=== PATIENT | female | born 2005 | race Caucasian/White ===

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

== ENCOUNTER 2025-01-11 12:21 | Outpatient (CLI) | payer BC, SELFPAY ==
--- NOTE | ~2025-01-11 | XR_ITS ---
HISTORY: Lt sided lbp x 4 days w/o injury COMPARISON: None. TECHNIQUE: 2 view lumbar spine. FINDINGS: Lumbar vertebral bodies are normally aligned. There are 5 non-rib bearing lumbar vertebral bodies. Disc spaces and vertebral body heights are well maintained. There are no acute fractures. Paraspinal soft tissues are unremarkable IMPRESSION: No acute fractures or significant degenerative disease Reviewed, dictated and finalized at location A.
== END 2025-01-11 12:22 | disposition home or self-care (01) ==
PROVIDERS: Visit Provider Nurse Practitioner
DX: M54.50 Low back pain, unspecified (principal)
CPT/HCPCS: 72100

== ENCOUNTER 2025-01-14 23:33 | Emergency (ER) | payer BC, SELFPAY ==
--- NOTE | ~2025-01-14 | CT_ITS ---
Noncontrast CT scan of the lumbar spine CLINICAL HISTORY: Pain TECHNIQUE: Axial noncontrast imaging of the lumbar spine was performed. Sagittal and coronal reformat keiko images were constructed. Dose reduction technique was used on this scan by utilizing automated ex posure control and iterative reconstruction technique. The dose-length product (DLP) was 1409.26 mGy- cm. FINDINGS: There is no acute fracture or subluxation of the lumbar spine. Vertebral bodies maintain no rmal height and alignment. Intervertebral disc spaces are well preserved. At L1-L2 and L2-L3, there is no disc bulge or herniation. No spinal canal stenosis or neural foramina l narrowing at these levels. L3-L4, there is probable minimal disc bulge. No definite canal stenosis or neural foraminal narrowing . At L4-L5, there is no disc bulge or herniation. No spinal canal stenosis or neural foraminal narrowin g. L5-S1, there is no disc bulge or herniation. No spinal canal stenosis or neural foraminal narrowing. Paravertebral soft tissues are unremarkable. Impression: Probable mild degenerative spondylosis at L3-L4, as above. Reviewed, dictated and finalized at location M. Impression: Probable mild degenerative spondylosis at L3-L4, as above.
--- OUTSIDE RECORDS SUMMARY | 2025-01-14 23:35 | XMS_ITS | Patient Health Record ---
Author Organization [facility] Address [address] [address] Care Team Providers Care Rural Route Mail Carrier Name Role Phone Kellie Gibson Unavailable [phone] Allergies Allergen (clinical drug ingredient) Drug/Non Drug Allergy documented on EMR Reaction Allergy Type Onset Date Status Egg Derived (uncoded) True allergy_Rash Allergy 09/24/2021 Active Lactase True allergy_intolera nce- hives Drug Allergy 09/24/2021 Active Whey Protein True allergy_Nausea and vomiting Drug Allergy 09/24/2021 Active Peanut-containing Drug Products True allergy_unknown Drug Allergy 09/24/2021 Active Reason For Referral No Information Medications Medication SIG (Take, Route, Frequency, Duration) Notes Start Date End Date Status EPINEPHrine 0.3 MG/0.3ML Injection daily for 0 take 0.3 Milliliter(s) by Subcutaneous route daily as needed 09/24/2021 Active Naproxen Sodium 220 mg Oral daily for 0 take 1 (one) Capsule by Oral route daily as needed. 09/24/2021 Active ZyrTEC Allergy 10 MG Oral daily for 0 take 1 (on e) Tablet by Oral route daily 09/24/2021 Active metFORMIN HCl 500 MG Oral daily for 0 take 2 (tw o) Tablet by Oral route daily 03/27/2022 Active Magnesium 300 MG 1 capsule with a meal Orally Once a day Active buPROPion HCl 75 MG 2 tablets Orally Twice a day Active Lexapro 20 MG 1 tablet Orally Once a day Active Topamax 50 MG 1 tablet Orally Once a day Active ProAir HFA 108 (90 Base) MCG/ACT Inhalation every 4 hours for 0 2 (two) Puff(s) by Oral route every 4 hours as needed for wheezing. 09/24/2021 Active Drospiren-Eth Estrad-Levomefol 3-0.02-0.451 MG Oral daily for 0 1 (one) Tablet by Oral route daily 09/24/2021 Active Ibuprofen 400 MG Oral daily for 0 take 1 (one) T ablet by Oral route daily 09/24/2021 Active Singulair 10 MG Oral at bedtime for 0 take 1 (one) Tablet by Oral route at bedtime 09/24/2021 Active Excedrin Tension Headache 500-65 mg Oral every 4 hours for 0 take 1 (one) Tablet by Oral route every 4 hours as needed for headache. 09/24/2021 Active Problems Problem Type SNOMED Code ICD Code Onset Dates Problem Status W/U Status Risk Notes Problem [id number] Acute right ankle pain (M25.571) Active confirmed Problem 549467588 Right leg pain (M79.604) Active confirmed Problem Pain in right leg (761003876) Pain in right leg (M79.604) 2 Active confirmed Problem Postoperative care (127934988) Encounter for other specified surgical aftercare (Z48.89) 9 Active confirmed Problem Closed fracture of ankle (86775186) Unspecified fracture of lower end of tibia (right, initial encounter for closed fracture) (S82.301A) 9 Active confirmed Problem Unspecified fracture of shaft of fibula (right, initial encounter for closed fracture) (S82.401A) 9 Active confirmed Problem Closed bimalleolar fracture (99373256) Displaced bimalleolar fracture of right lower leg (initial encounter for closed fracture) (S82.841A) 9 Active confirmed Problem Sprain of deltoid ligament of ankle (52572620) Sprain of deltoid ligament (right, initial encounter) (S93.421A) 9 Active confirmed Plan Of Treatment No Information Insurance Providers Payer Name Payer Address Payer Phone Subscriber Number Group Number Insured Name Patient Relationship to Insured Coverage Start Date Coverage End Date [facility] [address] [place], [place] [id number] Maureen Smith Child - Insured does not have Financial Responsibility (includes legally adopted child) 9 Medical (General) History Medical History History ICD Code ASTHMA, SKIN DISORDERS, Sleep apnea Surgical History Surgery Date(Month/Year) surgical / procedural No surgical / proc edural history Ankle surgery X3
--- OUTSIDE RECORDS SUMMARY | 2025-01-14 23:35 | XMS_ITS | Encounter Summary ---
Author Organization [facility] Address [address] [place] [address] Phone Care Team Providers Care Transportation Security Officer Name Role Phone Carlitos Mitchell MD Primary Care Provid er Reason for Visit * Reason Comments Medication Refill Encounter Details Date Type Department Care Team (Late st Contact Info) Description 03/01/2024 [facility]ill [facility] - [place] [address] [place] [address] Carlitos Mitchell MD [address] [place], [place] [phone] Medication Refill Social History Tobacco Use Types Packs/Day Years Used Date Smoking Tobacco: Never Passive Smoke Exposure: Never Smokeless Tobacco: Never Alcohol Use Standard Drinks/Week Comments Not Asked 0 (1 standard drink = 0.6 oz pur e alcohol) PHQ-2 Answer Date Recorded Total Score - Questions 1-9 6 08/28 Comments No Sex and Gender Information Value Date Recorded Sex Assigned at Female 01/25/2024 11:06 AM CDT Legal Sex Female 2:46 AM EXCEPTIONAL STUDENT EDUCATION AIDE Gender Identity Female 01/25/2024 11:06 AM CDT Sexual Orientation Straight 01/25/2024 11 :06 AM CDT documented as of this encounter Miscellaneous Notes * Telephone Encounter - Claudia Lara RN - 03/01/2024 7:47 AM CDT Medication failed the protocol, provider to review and approve the medication order if appropriate. Requested Prescriptions Pending Prescriptions Disp Refills metFORMIN (GLUCOPHAGE-XR) 500 MG TABLET SR 24 HR [Pharmacy Med Name: METFORMIN HCL ER 500 MG TABLET] 270 Tablet 0 Sig: TAKE 1 TABLET AFTER BREAKFAST AND 2 TABLETS AFTER DINNER Biguanides Protocol Failed - 03/01/2024 12:32 AM Failed - HgA1C on record in past 6 months HGB-A1C Date Value Ref Range Status 08/31/2023 5.4 4.0 - 6.0 % Final Passed - Visit with relevant provider in past 6 months or upcoming 90 days Recent Visits Date Type Provider Dept 01/27/24 Office Visit Carlitos Mitchell MD [facility] [place] Showing recent visits within past 182 days and meeting all other requirements Future Appointments No visits were found meeting these conditions. Showing future appointments within next 90 days and meeting all other requirements Passed - GFR on record in past 6 months No results found for: GFRNA documented in this encounter Plan of Treatment Upcoming Encounters Date Type Department Care Team (Late st Contact Info) Description 03/12/2025 11:00 AM CDT [facility] Visit [facility] - [place] [facility] [address] [place] [place] [phone] Carlitos Mitchell MD [facility] [address] [place], [place] [address] 05/21/2025 10:00 AM CDT [facility] [place] [facility] - [address] [place] [address] Leigha Burks, WORKERS' COMPENSATION CLAIMS EXAMINER, PANELBOARD OPERATOR [address] [place] [address] Discharge Disposition: Discharged to home or Selfcare 10/01/2025 10:00 AM EXCEPTIONAL STUDENT EDUCATION AIDE Office Visit [facility] [address] [place] [address] Adelita Dumont, PAC [address] [place] [address] Discharge Disposition: Discharged to home or Selfcare documented as of this encounter Goals Goal Patient Goal Type Associated Problems Recent Progress Patient-Stated? Author I want my wound to heal so I can begin physical therapy General On track( 019 10:46 AM EXCEPTIONAL STUDENT EDUCATION AIDE) Yes Noris Quiroz, RN Note: Goal Reviewed with: patient and parent Readiness to change: Ready to change Department associated with goal: [facility] Steps to achieve goal: 1. I will change my dressings as ordered 2. I will keep my appointments with the wound clinic documented as of this encounter Visit Diagnoses Diagnosis Prediabetes Other abnormal glucose documented in this encounter Additional Health Concerns Assessment Noted Time PHQ-9 Depression Total Score: 6 09/22/20 22 11:00 AM EXCEPTIONAL STUDENT EDUCATION AIDE documented as of this encounter Care Teams Transportation Security Officer Relationship Specialty Start Date End Date Carlitos Mitchell MD [address] [place] [address] PCP - General Pediatrics 11/29/21 documented as of this encounter
--- OUTSIDE RECORDS SUMMARY | 2025-01-14 23:35 | XMS_ITS | Encounter Summary ---
Author Organization [facility] Address [address] [place] [address] Phone Care Team Providers Care Acid Purifier Name Role Phone Carlitos Mitchell MD Primary Care Provid er Reason for Visit * Reason Comments Medication Refill Encounter Details Date Type Department Care Team (Late st Contact Info) Description 02/11/2023 Refill [facility] - [place] [address] [place] [address] Rosa Maria Turner, HORTICULTURAL NURSERY ASSISTANT, RELIABILITY SPECIALIST [address], [place] [phone] Medication Refill Social History Tobacco Use Types [...] AM CDT Legal Sex Female 2:46 AM PRODUCTION CREW SUPERVISOR Gender Identity Female 01/25/2024 11:06 AM CDT Sexual Orientation Straight 01/25/2024 11 :06 AM CDT COVID-19 Exposure Response Date Recorded In the last 10 days, have yo u been in contact with someone who was confirmed or suspected to have Coronavirus/COVID-19? No / Unsure 01/20/2023 1:40 PM CDT documented as of this encounter Miscellaneous Notes * Telephone Encounter - Britany Goodwin RN - 02/11/2023 8:44 AM CDT Medication failed the protocol, provider to review and approve the medication order if appropriate. Requested Prescriptions Pending Prescriptions Disp Refills escitalopram (LEXAPRO) 20 MG Tablet [Pharmacy Med Name: ESCITALOPRAM 20 MG TABLET] 90 Tablet 1 Sig: Take 1 Tablet by mouth daily SSRI (6 Month Refill Only) Protocol Failed - 02/11/2023 12:34 AM Failed - Not delegated, patient under 18 years of age Passed - No test in the past 12 months or most recent test was negative Passed - No active on record Passed - Visit with relevant provider in past 6 months or upcoming 90 days Recent Visits Date Type Provider Dept 01/20/23 Office Visit Carlitos Mitchell MD [facility] [place] 09/22/22 Office Visit Carlitos Mitchell MD [facility] [place] 08/19/22 Office Visit Carlitos Mitchell MD [facility] [place] Showing recent visits within past 182 days and meeting all other requirements Future Appointments No visits were found meeting these conditions. Showing future appointments within next 90 days and meeting all other requirements Passed - Patient has established therapy with SSRI for at least 6 months Passed - Has an encounter in the past 6 months with a depression, anxiety, adjustment disorder, OCD, or PTSD visit diagnosis documented in this encounter Plan of Treatment Upcoming Encounters Date Type Department Care Team (Late st Contact Info) Description 03/12/2025 11:00 AM CDT Office Visit [facility] - Pediatrics - [place], [place] [phone] Carlitos Mitchell MD [facility] [address] [place], [place] [phone] 05/21/2025 10:00 AM CDT Office Visit [facility] [place] - Neurology - [address] [place] [address] Leigha Burks APRN, RELIABILITY SPECIALIST [address] [place] [address] Discharge Disposition: Discharged to home or Selfcare 10/01/2025 10:00 AM PRODUCTION CREW SUPERVISOR Office Visit [facility] [address] [place] [address] Adelita Dumont, PAC [address] [place], [place] [address] Discharge Disposition: Discharged to home or Selfcare documented as of this encounter Goals Goal Patient Goal Type Associated Problems Recent Progress Patient-Stated? Author I want my wound to heal so I can begin physical therapy General On track( 019 10:46 AM PRODUCTION CREW SUPERVISOR) Yes Noris Quiroz, RN Note: Goal Reviewed with: patient and parent Readiness to change: Ready to change Department associated with goal: [facility] Steps to achieve goal: 1. I will change my dressings as ordered 2. I will keep my appointments with the wound clinic documented as of this encounter Visit Diagnoses Diagnosis ARLIN (generalized anxiety disorder) Generalized anxiety disorder documented in this encounter Additional Health Concerns Infection Onset Date Last Indicated Resolved Time COVID - 19 10/25/2023 10/25/2023 11/04/2023 12:1 6 AM PRODUCTION CREW SUPERVISOR Respiratory Rule-Out 10/25/2023 10/25/2023 024 7:29 PM PRODUCTION CREW SUPERVISOR Influenza 10/25/2023 10/25/2023 11/01/2023 12:1 6 AM PRODUCTION CREW SUPERVISOR Assessment Noted Time PHQ-9 Depression Total Score: 6 09/22/20 22 11:00 AM PRODUCTION CREW SUPERVISOR documented as of this encounter Care Teams Acid Purifier Relationship Specialty Start Date End Date Carlitos Mitchell MD [facility] [place] [address] [place] [address] PCP - General Pediatrics 11/29/21 documented as of this encounter
--- OUTSIDE RECORDS SUMMARY | 2025-01-14 23:35 | XMS_ITS | Encounter Summary ---
Author Organization [facility] Address [address] [place] [address] Phone Care Team Providers Care Vending Stand Supervisor Name Role Phone Carlitos Mitchell MD Primary Care Provid er Reason for Visit * Reason Comments Medication Refill Encounter Details Date Type Department Care Team (Late st Contact Info) Description 09/29/2023 Refill [facility] - [place] [address] [place] [address] Eva Sutherland, CLOCK AND WATCH HANDS PAINTER, FINISHER POLISHER [address], [place] [phone] Medication Refill Social History Tobacco Use Types [...] AM CDT Legal Sex Female 2:46 AM MANAGER RADIATION Gender Identity Female 01/25/2024 11:06 AM CDT Sexual Orientation Straight 01/25/2024 11 :06 AM CDT documented as of this encounter Miscellaneous Notes * Telephone Encounter - Anabell Serrato RN - 09/30/2023 7:20 AM CST Medication failed the protocol, provider to review and approve the medication order. Requested Prescriptions Pending Prescriptions Disp Refills buPROPion (WELLBUTRIN) 150 MG XL tablet [Pharmacy Med Name: BUPROPION HCL XL 150 MG TABLET] 90 Tablet 2 Sig: TAKE 1 TABLET BY MOUTH EVERY DAY IN THE MORNING Bupropion (6 Month Refill Only) Protocol Passed - 09/29/2023 7:02 PM Passed - No test in the past 12 months or most recent test was negative Passed - No active on record Passed - Visit with relevant provider in past 6 months or upcoming 90 days Recent Visits Date Type Provider Dept 06/21/23 Office Visit Carlitos Mitchell MD [facility] [place] 05/19/23 Office Visit Bethany Cintron APRN, FINISHER POLISHER [facility] [place] Showing recent visits within past 182 days and meeting all other requirements Future Appointments No visits were found meeting these conditions. Showing future appointments within next 90 days and meeting all other requirements Passed - Has an encounter in the past 6 months with a depression or anxiety visit diagnosis Passed - Patient has established therapy with Bupropion for at least 6 months GER RADIATION documented in this encounter Plan of Treatment Upcoming Encounters Date Type Department Care Team (Late st Contact Info) Description 03/12/2025 11:00 AM CDT Office Visit [facility] - [facility] - [place] [facility] [address] [place], [place] [address] Carlitos Mitchell MD [address] [place] [address] 05/21/2025 10:00 AM CDT Office Visit [facility] [place] - Neurology - [address] [place] [phone] Leigha Burks APRN, FINISHER POLISHER [address] [place], [place] [address] Discharge Disposition: Discharged to home or Selfcare 10/01/2025 10:00 AM MANAGER RADIATION Office Visit [facility] [address] [place] [address] Tim Adelita Copeland, PAC [address] [facility] [place] [address] Discharge Disposition: Discharged to home or Selfcare documented as of this encounter Goals Goal Patient Goal Type Associated Problems Recent Progress Patient-Stated? Author I want my wound to heal so I can begin physical therapy General On track( 019 10:46 AM MANAGER RADIATION) Yes Noris Quiroz, RN Note: Goal Reviewed with: patient and parent Readiness to change: Ready to change Department associated with goal: [facility] Steps to achieve goal: 1. I will change my dressings as ordered 2. I will keep my appointments with the wound clinic documented as of this encounter Visit Diagnoses Diagnosis Current moderate episode of major depressive disorder without prior episode (HCC) documented in this encounter Additional Health Concerns Infection Onset Date Last Indicated Resolved Time COVID - 19 10/25/2023 10/25/2023 11/04/2023 12:1 6 AM MANAGER RADIATION Respiratory Rule-Out 10/25/2023 10/25/2023 024 7:29 PM MANAGER RADIATION Influenza 10/25/2023 10/25/2023 11/01/2023 12:1 6 AM MANAGER RADIATION Assessment Noted Time PHQ-9 Depression Total Score: 6 09/22/20 22 11:00 AM MANAGER RADIATION documented as of this encounter Care Teams Vending Stand Supervisor Relationship Specialty Start Date End Date Carlitos Mitchell MD [address] [place] [address] PCP - General Pediatrics 11/29/21 documented as of this encounter
--- OUTSIDE RECORDS SUMMARY | 2025-01-14 23:35 | XMS_ITS | Encounter Summary ---
Author Organization [facility] Address [address] [place] [address] Phone Care Team Providers Care Box Strapper Name Role Phone Carlitos Mitchell MD Primary Care Provid er Encounter Details Date Type Department Care Team (Late st Contact Info) Description 04/29/2022 Anesthesia Event [facility] [address] [place] [phone] Provider, [facility] Historical Social History Tobacco Use Types Packs/Day Years Used Date Smoking Tobacco: Never Assessed Comments Unknown Sex and Gender Information Value Date Recorded Sex Assigned at Not on file Legal Sex Female 1:22 PM CDT Gender Identity Not on file Sexual Orientation Not on file documented as of this encounter Plan of Treatment Not on file documented as of this encounter Visit Diagnoses Not on filedocumented in this encounter Care Teams Box Strapper Relationship Specialty Start Date End Date Carlitos Mitchell MD [address] [place] [address] PCP - General Pediatric Development 06/15/22 documented as of this encounter
--- OUTSIDE RECORDS SUMMARY | 2025-01-14 23:35 | XMS_ITS | Encounter Summary ---
Author Organization [facility] Address [address] [place] [address] Phone Care Team Providers Care Locomotive Operator Name Role Phone Carlitos Mitchell MD Primary Care Provid er Reason for Visit * Reason Comments Medication Refill Encounter Details Date Type Department Care Team (Late st Contact Info) Description 03/23/2024 Refill [facility] - [place] [address] [place] [address] Carlitos Mitchell MD [address] [place], [place] [id number] Medication Refill Social History Tobacco Use Types [...] AM CDT Legal Sex Female 2:46 AM COUNTRY DIRECTOR Gender Identity Female 01/25/2024 11:06 AM CDT Sexual Orientation Straight 01/25/2024 11 :06 AM CDT documented as of this encounter Miscellaneous Notes * Telephone Encounter - Rosa Maria Turner APRN, CNP - 03/23/2024 7:35 AM CDT * Telephone Encounter - Erika Bella RN - 03/23/2024 7:33 AM CDT Per nursing clinical judgement, provider to review and approve the medication(s) order(s) if appropriate. Requested Prescriptions Pending Prescriptions Disp Refills atorvastatin (LIPITOR) 10 MG Tablet [Pharmacy Med Name: ATORVASTATIN 10 MG TABLET] 90 Tablet 1 Sig: TAKE 1 TABLET BY MOUTH EVERY DAY Hmg CoA Reductase Inhibitors Protocol Passed - 03/23/2024 12:30 AM Passed - No positive test in the past 12 months or most recent test was negative Passed - Visit with relevant provider in past 12 months or upcoming 90 days Recent Visits Date Type Provider Dept 01/27/24 Office Visit Carlitos Mitchell MD [facility] [place] 06/21/23 Office Visit Carlitos Mitchell MD [facility] [place] 05/19/23 Office Visit Bethany Cintron APRN, CNP [facility] [place] Showing recent visits within past 365 days and meeting all other requirements Future Appointments No visits were found meeting these conditions. Showing future appointments within next 90 days and meeting all other requirements Passed - No active on record Passed - Lipid panel in past 12 months LDL Date Value Ref Range Status 01/27/2024 85 <130 mg/dL Final HDL CHOLESTEROL Date Value Ref Range Status 01/27/2024 47 >40 mg/dL Final CHOLESTEROL Date Value Ref Range Status 01/27/2024 162 <200 mg/dL Final TRIGLYCERIDES Date Value Ref Range Status 01/27/2024 151 (H) <150 mg/dL Final VLDL Date Value Ref Range Status 01/27/2024 30 10 - 50 mg/dL Final CHOL/HDL RATIO Date Value Ref Range Status 01/27/2024 3.4 0.0 - 4.4 Final NON-HDL CHOLESTEROL Date Value Ref Range Status 01/27/2024 115 <130 mg/dL Final Passed - CMP in past 12 months SODIUM Date Value Ref Range Status 01/27/2024 139 136 - 145 mmol/L Final POTASSIUM Date Value Ref Range Status 01/27/2024 3.8 3.5 - 5.1 mmol/L Final CHLORIDE Date Value Ref Range Status 01/27/2024 112 (H) 98 - 107 mmol/L Final CO2, VENOUS Date Value Ref Range Status 01/27/2024 19 (L) 22 - 30 mmol/L Final ANION GAP Date Value Ref Range Status 01/27/2024 8.0 <18.0 mmol/L Final GLUCOSE Date Value Ref Range Status 01/27/2024 80 70 - 99 mg/dL Final BUN Date Value Ref Range Status 01/27/2024 10 5 - 18 mg/dL Final CREATININE, BLOOD Date Value Ref Range Status 01/27/2024 0.96 0.60 - 1.00 mg/dL Final BUN/CREATININE RATIO Date Value Ref Range Status 01/27/2024 10 (L) 12 - 20 ratio Final TOTAL PROTEIN Date Value Ref Range Status 01/27/2024 7.2 6.3 - 8.2 g/dL Final ALBUMIN Date Value Ref Range Status 01/27/2024 4.4 3.5 - 5.0 g/dL Final A/G RATIO Date Value Ref Range Status 01/27/2024 1.6 1.0 - 2.2 Final CALCIUM Date Value Ref Range Status 01/27/2024 9.6 8.7 - 10.5 mg/dL Final T BILI Date Value Ref Range Status 01/27/2024 0.3 0.2 - 1.2 mg/dL Final SGOT (AST) Date Value Ref Range Status 01/27/2024 45 19 - 46 U/L Final SGPT (ALT) Date Value Ref Range Status 01/27/2024 34 0 - 55 U/L Final ALKALINE PHOSPHATASE Date Value Ref Range Status 01/27/2024 47 40 - 150 U/L Final GFR, ESTIMATED Date Value Ref Range Status 01/27/2024 >60 >=60 Final Comment: Creatinine Clearance is the preferred criteria for selecting drug dose adjustments in renally impaired patients. The GFR is provided as additional pertinent clinical information. GFR is reported in mL/min/1.73 sq m. Calculation based on the Chronic Kidney Disease Epidemiology Collaboration (CKD- EPI) equation refitwithout adjustment for race. UNABLE TO CALCULATE IS THE PATIENT REQUIRED TO BE FASTING? Date Value Ref Range Status 01/27/2024 No Final HAS THE PATIENT BEEN FASTING? Date Value Ref Range Status 05/11/2022 Yes Final documented in this encounter Plan of Treatment Upcoming Encounters Date Type Department Care Team (Late st Contact Info) Description 03/12/2025 11:00 AM CDT Office Visit [facility] - Pediatrics - [place] [address] [place] [address] Calritos Mitchell MD [address] [place] [address] 05/21/2025 10:00 AM CDT Office Visit [facility] [place] - Neurology - [address] [place] [phone] Leigha Burks, CRUSHER SCREEN REPAIRER, SAFETY AND HEALTH MANAGER [address] [place] [address] Discharge Disposition: Discharged to home or Selfcare 10/01/2025 10:00 AM COUNTRY DIRECTOR Office Visit [facility] [address] [place] [address] Adelita Dumont, PAC [address] [place], [place] [phone] Discharge Disposition: Discharged to home or Selfcare documented as of this encounter Goals Goal Patient Goal Type Associated Problems Recent Progress Patient-Stated? Author I want my wound to heal so I can begin physical therapy General On track( 019 10:46 AM COUNTRY DIRECTOR) Yes Noris Quiroz, RN Note: Goal Reviewed with: patient and parent Readiness to change: Ready to change Department associated with goal: [facility] Steps to achieve goal: 1. I will change my dressings as ordered 2. I will keep my appointments with the wound clinic documented as of this encounter Visit Diagnoses Diagnosis Dyslipidemia Other and unspecified hyperlipidemia documented in this encounter Additional Health Concerns Assessment Noted Time PHQ-9 Depression Total Score: 6 09/22/20 22 11:00 AM COUNTRY DIRECTOR documented as of this encounter Care Teams Locomotive Operator Relationship Specialty Start Date End Date Carlitos Mitchell MD [address] [place] [address] PCP - General Pediatrics 11/29/21 documented as of this encounter
--- OUTSIDE RECORDS SUMMARY | 2025-01-14 23:35 | XMS_ITS | Clinical Summary ---
Author Organization [facility] Address [address] [place] [address] Care Team Providers Care Pyrometallurgical Engineer Name Role Phone Carlitos Mitchell MD Primary Care Provid er Allergies Active Allergy Reactions Criticality Noted Date Comments Lactase Hives 09/16/2015 Egg-Derived Products Rash 05/08/2019 Other-Environmental Allergen (Not Found In Search) Unknown Low 04/16/2022 Peanut (Diagnostic) Unknown 05/08/2019 Protein Vomiting 05/08/2019 Medications EPINEPHrine (EPIPEN) 0.3 MG/0.3ML Solution Auto-injector 0.3 mL by Intramuscular route once as needed for Anaphylaxis for up to 1 dose. 2 auto injector 1 0 Active diphenhydrAMINE (Benadryl Allergy) 25 MG Tablet Take 2 Tablets by mouth every 6 hours as needed for Itching. 100 Tablet 2 Active naproxen (NAPROSYN) 500 MG TabletIndicatio ns:Migraine without aura and without status migrainosus, not intractable,Epi sodic tension-type headache, not intractable Take 1 Tablet by mouth every 8 hours as needed for Other (Headache >5/10). TAKE WITH FOOD 60 Tablet 1 3 Active hydrOXYzine (ATARAX) 25 MG TabletIndicatio ns:Migraine without aura and without status migrainosus, not intractable,Epi sodic tension-type headache, not intractable Take 0.5-1 Tablets by mouth every 8 hours as needed (Headache). MAY COMBINE WITH NAPROXEN 60 Tablet 2 3 Active albuterol 108 (90 Base) MCG/ACT Aerosol SolutionIndicat ions:Exercise-i nduced asthma take 2 Puffs by inhalation every 4 hours as needed for Wheezing or Cough. 36 g 3 3 Active cetirizine (ZyrTEC) 10 MG Tablet Take 10 mg by mouth in the morning and at bedtime. Patient takes 20 mg daily Active etonogestrel (Nexplanon) 68 MG Implant 4 Active metFORMIN (GLUCOPHAGE-XR) 500 MG TABLET SR 24 HRIndications:P rediabetes TAKE 1 TABLET AFTER BREAKFAST AND 2 TABLETS AFTER DINNER 270 Tablet 3 4 Active montelukast (SINGULAIR) 10 MG Tablet Take 1 Tablet by mouth every evening. 90 Tablet 3 4 Active buPROPion (WELLBUTRIN) 150 MG XL tabletIndicatio ns:Current moderate episode of major depressive disorder without prior episode (HCC) Take 1 Tablet by mouth every morning. 90 Tablet 2 4 Active atorvastatin (LIPITOR) 10 MG TabletIndicatio ns:Dyslipidemia Take 1 Tablet by mouth daily. 90 Tablet 1 4 Active escitalopram (LEXAPRO) 20 MG TabletIndicatio ns:ARLIN (generalized anxiety disorder) TAKE 1 TABLET BY MOUTH EVERY DAY. 90 Tablet 3 4 Active Rimegepant Sulfate (Nurtec) 75 MG TABLET DISPERSIBLEIndi cations:Migrain e without aura and without status migrainosus, not intractable Take 75 mg by mouth every 48 hours. 16 Tablet 10 4 Active Topiramate 50 MG TabletIndicatio ns:Migraine without aura and without status migrainosus, not intractable Take 2 tablets in the morning and 1 tablet at bedtime 270 Tablet 1 4 Active Dupilumab (Dupixent) 300 MG/2ML Solution Prefilled Syringe by Subcutaneous route. Active Active Problems Problem Noted Date Diagnosed Date Papular eczema 09/11/2024 Overview (09/11/2024): her staff design engineer is going to be managing TMJ (temporomandibular joint disorder) Cervical spondylolysis 08/30/2023 Overview (08/30/2023): Found incidentally on [place] [facility] xray for trauma, mild multiple level Tension headache 06/15/2022 NING on CPAP 06/03/2022 Pain of right lower extremity 03/27/2022 Recurrent urticaria 01/29/2022 Overview (01/29/2022): Suspect anxiety-releated ARLIN (generalized anxiety disorder) 12/31/2021 Prediabetes 12/30/2021 Dyslipidemia 12/30/2021 Exercise induced bronchospasm 05/30/2021 Migraine 05/30/2021 Obesity 10/14/2015 Resolved Problems Problem Noted Date Diagnosed Date Resolved Date Acute right ankle pain 09/11/202409/11 VELASQUEZ (nonalcoholic steatohepatitis) 01/27/2024 09/11/2024 Elevated blood pressure reading 02/11/2022 06/22/2023 Overview (02/11/2022): See mychart numbers 02/11/22 Likely related to BMI as well as white coat Verruca plana 01/29/2022 08/19/2022 Concussion with no loss of consciousness 06/19/2021 06/19/2021 Menometrorrhagia 05/30/2021 09/11/2024 Chronic fatigue 05/30/2021 06/22/2023 Poor sleep 05/30/2021 06/15/2022 Abnormal weight gain 05/30/2021 024 Bruxism 05/30/2021 06/15/2022 Snoring 05/30/2021 06/15/2022 Open wound of ankle with ten don involvement, right, initial encounter 08/16/2019 05/30/2021 Surgical wound, non healing 08/16/2019 05/30/2021 Encounter for other specifie d surgical aftercare 07/25/2019 09/11/2024 Closed fracture of ankle 06/08/2019 Sprain of deltoid ligament of ankle 06/08/2019 09/11/2024 Unspecified fracture of shaf t of right fibula, initial encounter for closed fracture 06/08/2019 09/11/2024 Closed bimalleolar fracture 06/06/2019 09/11/2024 Hypertriglyceridemia 10/14/2015 024 Encounters Date Type Department Care Team Description 11/02/2024 Refill [facility] [place] - Neurology - [facility] [address] [place] [phone] Leigha Burks, HAND BOBBIN CLEANER, CLASSIFIED ADVERTISING MANAGER Medication Refill 10/18/2024 Telephone [facility] - [facility]s - [place] [address] [place] [address] Carlitos Mtichell MD Results from Last 3 Months Immunizations Immunization Administration Dates Next Due Covid-19, Mrna, Lnp-s, Pf, 3 0 Mcg/0.3 Ml Dose (Pfizer) 04/09/2021,03/19/2021 DTAP VACCINE 01/13/2011, 7,01/12/2006,11/17,2005 HIB Vaccine (PRP-T) 07/13/2006,2005,2004 Hepatitis A Vaccine 07/13/2006,01/11/2006 Hepatitis B Vaccine 07/13/2006,2005,2004 Hepatitis B Vaccine, Pediatric/adolescent 08/31/2023,06/21/2023,04/21/2023 Human Papillomavirus (HPV) 9 -valent Vaccine 05/09/2020,05/08/2019 Inactivated Polio Vaccine 01/13/2011,,2005,09/15 Influenza Vaccine 08/31/2024 Influenza Vaccine greater than 3 yrs 09/15/2006, 08/16/2006 Influenza Vaccine, Quadrivalent, PF 06/10/2023,0 06/15/2022,05/30/2021 MMR Vaccine 01/13/2011,07/13/2006 Meningococcal Group B OMV 08/31/2023 Meningococcal MCV4O 06/15/2022,03/12/2017 PUR FLU 3+ YRS PRES FREE QUAD IM 08/16/2015 Pneumococcal Vaccine Peds 07/13/2006,,2005,09/15 TB Skin Test 02/18/2022,01/29/2022 TDAP Vaccine 06/15/2022,03/12/2017 Typhoid, ViCPs 11/18/2022 Varicella Vaccine Live 01/13/2011,07/13/2006 Family History Medical History Relation Name Comments Anxiety disorder Father High Cholesterol Father High Cholesterol Maternal Grandfather Hypertension Maternal Grandfather Diabetes Maternal Grandmother type 2 Endometriosis Mother Other-comment Mother prediabetes Cancer Paternal Grandfather Diabetes Paternal Grandfather Cancer Paternal Grandmother Relation Name Status Comments Father Maternal Grandfather Maternal Grandmother Mother Paternal Grandfather Paternal Grandmother Social History Tobacco Use Types Packs/Day Years Used Date Smoking Tobacco: Never Passive Smoke Exposure: Never Smokeless Tobacco: Never Tobacco Cessation:Counseling Given: Not Answered Alcohol Use Standard Drinks/Week Comments Not Currently 0 (1 standard drink = 0.6 oz pur e alcohol) PHQ-2 Answer Date Recorded Total Score - Questions 1-9 2 08/27 Comments No Sex and Gender Information Value Date Recorded Sex Assigned at Female 01/25/2024 11:06 AM CDT Legal Sex Female 2:46 AM CEILING CLEANER Gender Identity Female 01/25/2024 11:06 AM CDT Sexual Orientation Straight 01/25/2024 11 :06 AM CDT Last Filed Vital Signs Vital Sign Reading Time Taken Comments Blood Pressure 118/76 10/03/2024 10:12 AM CEILING CLEANER Pulse 78 10/03/2024 10:12 AM CEILING CLEANER Temperature 36.6 C (97.9 F) 08/23/2024 3:40 PM CEILING CLEANER Respiratory Rate 18 08/23/2024 3:40 PM CEILING CLEANER Oxygen Saturation 97% 09/11/2024 11:14 AM CEILING CLEANER Inhaled Oxygen Concentration - - Weight 120.7 kg (266 lb) 10/03/2024 10:12 AM CEILING CLEANER Height 168.9 cm (5' 6.5 ) 10/03/2024 10:12 AM CS T Head Circumference 47 cm 07/05/2007 9:37 AM CDT Head Circumference Percentile 36.66% 07/05/2007 9:37 AM CDT Growth Chart: CDC (Girls, 0- 36 Months) Body Mass Index 42.29 10/03/2024 10:12 AM CEILING CLEANER Plan of Treatment Upcoming Encounters Date Type Department Care Team (Late st Contact Info) Description 03/12/2025 11:00 AM CDT [facility] - [place] [address] [place] [address] Carlitos Micthell MD [address] [place] [address] 05/21/2025 10:00 AM CDT [facility] Visit [facility] [place] - Neurology - [address] [place] [phone] Leigha Burks, TRISTA, CLASSIFIED ADVERTISING MANAGER [address] [place] [address] Discharge Disposition: Discharged to home or Selfcare 10/01/2025 10:00 AM CEILING CLEANER Office Visit [facility] [address] [place] [phone] DumontCosmey Dinorah, PAC [address] [place], [place] [phone] Discharge Disposition: Discharged to home or Selfcare Health Maintenance Due Date Last Done Comments Hepatitis C Virus (HCV) Screening 2005 Meningococcal B Immunization (2 of 2 - Bexsero SCDM 2-dose series) 03/01/2024 08/31/2023 SARS-COV-2 Immunization ( season) 2024 06/25/2022, 10/13/2021, 04/09/2021, Additional history exists DTaP/Tdap/Td Immunization (8 - Td or Tdap) 06/15/2032 06/15/2022, 03/12/2017, 01/13/2011, Additional history exists Respiratory Syncytial Virus (RSV) Immunization (Adult) (1 - 1-dose 75+ series) 2080 Hepatitis A Immunization Discontinued 07/13/2006, 12/26 Pneumococcal Immunization Combined Aged Out 07/13/2006, 01/12/2006, 2005, Additional history exists No longer eligible based on patient's age to complete this topic Measles Mumps Rubella (MMR) Immunization Discontinued 01/13/2011, 07/13/2006 Polio (IPV) Immunization Discontinued 011, 01/12/2006, 2005, Additional history exists Varicella Immunization Discontinued 01/13/2011, 2005 Human Papillomavirus (HPV) Immunization Completed 05/09/2020, 05/08/2019 Meningococcal Immunization (ACWY) Completed 06/15/2022, 03/12/2017 Hepatitis B Immunization Completed 023, 06/21/2023, 04/21/2023, Additional history exists Influenza Immunization Completed 4, 06/10/2023, 06/15/2022, Additional history exists Rotavirus Immunization Aged Out No lo nger eligible based on patient's age to complete this topic Goals Goal Patient Goal Type Associated Problems Recent Progress Patient-Stated? Author I want my wound to heal so I can begin physical therapy General On track( 019 10:46 AM CEILING CLEANER) Yes Noris Quiroz, RN Note: Goal Reviewed with: patient and parent Readiness to change: Ready to change Department associated with goal: [facility] Steps to achieve goal: 1. I will change my dressings as ordered 2. I will keep my appointments with the wound clinic Procedures Procedure Name Priority Date/Time Associated Diagnosis Comments US - HEAD/NECK 10/18/2024 12:00 AM CEILING CLEANER from Last 3 Months Results * US - HEAD/NECK (10/18/2024 12:00 AM CEILING CLEANER) 10/18/2024 us Provider Scan IMG US ORDERABLES Final Result SCAN from Last 3 Months Insurance [facility] Care Teams Pyrometallurgical Engineer Relationship Specialty Start Date End Date Carlitos Mitchell MD [facility] [place] [address] PCP - General Pediatrics 11/29/21
--- OUTSIDE RECORDS SUMMARY | 2025-01-14 23:35 | XMS_ITS | Encounter Summary ---
Author Organization [facility] Address [address] [place] [address] Phone Care Team Providers Care Sales Audit Clerk Name Role Phone Carlitos Mitchell MD Primary Care Provid er Reason for Visit * Reason Comments Medication Refill Encounter Details Date Type Department Care Team (Late st Contact Info) Description 07/10/2022 Refill [facility] - [place] [address] [place] [address] Carlitos Mitchell MD [address] [place], [place] [phone] Medication Refill Social History Tobacco Use Types Packs/Day Years Used Date Smoking Tobacco: Never Smokeless Tobacco: Never Alcohol Use Standard Drinks/Week Comments Not Asked 0 (1 standard drink = 0.6 oz pur e alcohol) PHQ-2 Answer Date Recorded Total Score - Questions 1-9 6 04/27 Comments No Sex and Gender Information Value Date Recorded Sex Assigned at Female 01/25/2024 11:06 AM CDT Legal Sex Female 2:46 AM NUTRITION SERVICES AIDE Gender Identity Female 01/25/2024 11:06 AM CDT Sexual Orientation Straight 01/25/2024 11 :06 AM CDT COVID-19 Exposure Response Date Recorded In the last 10 days, have yo u been in contact with someone who was confirmed or suspected to have Coronavirus/COVID-19? No / Unsure 06/15/2022 7:43 AM CDT documented as of this encounter Miscellaneous Notes * Telephone Encounter - Cheryle Ovalles RN - 07/10/2022 10:27 AM CDT Medication failed the protocol, provider to review and approve the medication order if appropriate. Requested Prescriptions Pending Prescriptions Disp Refills topiramate (TOPAMAX) 25 MG Tablet [Pharmacy Med Name: TOPIRAMATE 25 MG TABLET] 120 Tablet 0 Sig: Take 2 Tablets by mouth 2 times daily. Not Delegated - Anticonvulsants Excluding Benzodiazepines Protocol Failed - 07/10/2022 7:30 AM Failed - This refill cannot be delegated Passed - Visit with relevant provider in past 12 months or upcoming 90 days Recent Visits Date Type Provider Dept 06/15/22 Office Visit Carlitos Mitchell MD [facility] [place] 05/11/22 Office Visit Rosa Maria Turner APRN, [facility] [place] 04/20/22 Office Visit Rosa Maria Turner APRN, PRODUCT STRATEGY DIRECTOR [facility] [place] 01/29/22 Office Visit Carlitos Mitchell MD [facility] [place] 12/30/21 Office Visit Carlitos Mitchell MD [facility] [place] 09/10/21 Office Visit Bethany Cintron APRN, [facility] [place] Showing recent visits within past 365 days and meeting all other requirements Future Appointments Date Type Provider Dept 08/19/22 Appointment Carlitos Mitchell MD [facility] [place] Showing future appointments within next 90 days and meeting all other requirements documented in this encounter Plan of Treatment Upcoming Encounters Date Type Department Care Team (Late st Contact Info) Description 03/12/2025 11:00 AM CDT Office Visit [facility] [place] [address] Carlitos Mitchell MD [address] [place] [address] 05/21/2025 10:00 AM CDT [facility] [place] - Neurology - [address] [place] [phone] Leigha Burks Elvin, AIRCONDITIONING DRAFTING OFFICER, PRODUCT STRATEGY DIRECTOR [address] [place] [address] Discharge Disposition: Discharged to home or Selfcare 10/01/2025 10:00 AM NUTRITION SERVICES AIDE Office Visit [facility] [address] [place] [address] Adelita Dumont, PAC [address] [place] [address] Discharge Disposition: Discharged to home or Selfcare documented as of this encounter Goals Goal Patient Goal Type Associated Problems Recent Progress Patient-Stated? Author I want my wound to heal so I can begin physical therapy General On track( 019 10:46 AM NUTRITION SERVICES AIDE) Yes Noris Quiroz, RN Note: Goal Reviewed with: patient and parent Readiness to change: Ready to change Department associated with goal: [facility] Steps to achieve goal: 1. I will change my dressings as ordered 2. I will keep my appointments with the wound clinic documented as of this encounter Visit Diagnoses Diagnosis Tension headache Other migraine without status migrainosus, not intractable documented in this encounter Additional Health Concerns Infection Onset Date Last Indicated Resolved Time COVID - 19 10/25/2023 10/25/2023 11/04/2023 12:1 6 AM NUTRITION SERVICES AIDE Respiratory Rule-Out 10/25/2023 10/25/2023 024 7:29 PM NUTRITION SERVICES AIDE Influenza 10/25/2023 10/25/2023 11/01/2023 12:1 6 AM NUTRITION SERVICES AIDE Assessment Noted Time PHQ-9 Depression Total Score: 6 05/11/20 22 4:00 PM CDT documented as of this encounter Care Teams Sales Audit Clerk Relationship Specialty Start Date End Date Carlitos Mitchell MD [address] [place] [address] PCP - General Pediatrics 11/29/21 documented as of this encounter
--- OUTSIDE RECORDS SUMMARY | 2025-01-14 23:35 | XMS_ITS | Encounter Summary ---
Author Organization [facility] Address [address] [place] [address] Phone Care Team Providers Care Md Physician Dermatologist Name Role Phone Carlitos Mitchell MD Primary Care Provid er Reason for Visit * Reason Comments Medication Refill Encounter Details Date Type Department Care Team (Late st Contact Info) Description 05/30/2023 Refill [facility] - [facility] - [place] [address] [place] [address] Eva Sutherland, LAP POLISHER, MILL ROLL REWINDER [address], [place] [phone] Medication Refill Social History Tobacco Use Types [...] AM CDT Legal Sex Female 2:46 AM BATCHER OPERATOR Gender Identity Female 01/25/2024 11:06 AM CDT Sexual Orientation Straight 01/25/2024 11 :06 AM CDT COVID-19 Exposure Response Date Recorded In the last 10 days, have yo u been in contact with someone who was confirmed or suspected to have Coronavirus/COVID-19? No / Unsure 05/19/2023 2:49 PM CDT documented as of this encounter Miscellaneous Notes * Telephone Encounter - Anabell Serrato RN - 05/30/2023 11:06 AM CDT Medication failed the protocol, provider to review and approve the medication order. Requested Prescriptions Pending Prescriptions Disp Refills montelukast (SINGULAIR) 10 MG Tablet [Pharmacy Med Name: MONTELUKAST SOD 10 MG TABLET] 90 Tablet 3 Sig: TAKE 1 TABLET BY MOUTH EVERY DAY IN THE EVENING Leukotriene Inhibitors Protocol Passed - 05/30/2023 7:37 AM Passed - Visit with relevant provider in past 12 months or upcoming 90 days Recent Visits Date Type Provider Dept 05/19/23 Office Visit Bethany Cintron APRN, MILL ROLL REWINDER [facility] [place] 01/20/23 Office Visit Carlitos Mitchell MD [facility] [place] 09/22/22 Office Visit Carlitos Mitchell MD [facility] [place] 08/19/22 Office Visit Carlitos Mitchell MD [facility] [place] 06/15/22 Office Visit Carlitos Mitchell MD [facility] [place] Showing recent visits within past 365 days and meeting all other requirements Future Appointments Date Type Provider Dept 06/21/23 Appointment Carlitos Mitchell MD [facility] [place] Showing future appointments within next 90 days and meeting all other requirements documented in this encounter Plan of Treatment Upcoming Encounters Date Type Department Care Team (Late st Contact Info) Description 03/12/2025 11:00 AM CDT Office Visit [facility] - Pediatrics - [place] [address], [place] [id number] Carlitos Mitchell MD [address] [place] [address] 05/21/2025 10:00 AM CDT Office Visit [facility] - Neurology - [address] [place] [phone] Leigha Burks, TRISTA, MILL ROLL REWINDER [address] [place] [address] Discharge Disposition: Discharged to home or Selfcare 10/01/2025 10:00 AM BATCHER OPERATOR Office Visit [facility] [address] [place] [phone] Adelita Dumont, PAC [address] [place], [place] [phone] Discharge Disposition: Discharged to home or Selfcare documented as of this encounter Goals Goal Patient Goal Type Associated Problems Recent Progress Patient-Stated? Author I want my wound to heal so I can begin physical therapy General On track( 019 10:46 AM BATCHER OPERATOR) Yes Noris Quiroz, RN Note: Goal Reviewed with: patient and parent Readiness to change: Ready to change Department associated with goal: [facility] WOUND [facility] - [facility] CENTER Steps to achieve goal: 1. I will change my dressings as ordered 2. I will keep my appointments with the wound clinic documented as of this encounter Visit Diagnoses Not on filedocumented in this encounter Additional Health Concerns Infection Onset Date Last Indicated Resolved Time COVID - 19 10/25/2023 10/25/2023 11/04/2023 12:1 6 AM BATCHER OPERATOR Respiratory Rule-Out 10/25/2023 10/25/2023 024 7:29 PM BATCHER OPERATOR Influenza 10/25/2023 10/25/2023 11/01/2023 12:1 6 AM BATCHER OPERATOR Assessment Noted Time PHQ-9 Depression Total Score: 6 09/22/20 22 11:00 AM BATCHER OPERATOR documented as of this encounter Care Teams Md Physician Dermatologist Relationship Specialty Start Date End Date Carlitos Mitchell MD [address] [place] [address] PCP - General Pediatrics 11/29/21 documented as of this encounter
--- OUTSIDE RECORDS SUMMARY | 2025-01-14 23:35 | XMS_ITS | Clinical Summary ---
Author Organization [facility] Address [address] [place] [address] Phone Care Team Providers Care Children'S Tutor Nursery Name Role Phone Carlitos Mitchell MD Primary Care Provid er Allergies Active Allergy Reactions Criticality Noted Date Comments Egg Rash Low 05/08/2019 Lactase Hives High 09/16/2015 Peanut Rash,Unknown Low 05/08/2019 STOMACH PAIN Protein Nausea & Vomiting Medium 05/08/2019 Whey protien Medications * This document contains information received from the source organization and may not represent a complete record from that organization. acetaminophen-c affeine (EXCEDRIN TENSION HEADACHE) 500-65 mg Tab Take 1 tablet by mouth as needed Active albuterol HFA 90 mcg/actuation inhaler Take 2 puffs inhaled by mouth Active cetirizine (ZYRTEC) 10 mg tablet Take 20 mg by mouth 01/29/2022 Active diphenhydrAMINE (BENADRYL) 25 mg tablet Take 50 mg by mouth as needed 06/15/2022 Active escitalopram oxalate (LEXAPRO) 20 mg tablet Take 1 tablet by mouth every day 05/11/2022 Active metFORMIN (GLUCOPHAGE XR) 500 mg extended release tablet Take 1,000 mg by mouth 05/04/2022 Active montelukast (SINGULAIR) 10 mg tablet Take 1 tablet by mouth every evening 05/19/2022 Active Social History Tobacco Use Types Packs/Day Years Used Date Smoking Tobacco: Never Smokeless Tobacco: Never Tobacco Cessation:Counseling Given: Not Answered Alcohol Use Standard Drinks/Week Comments Never 0 (1 standard drink = 0.6 oz pur e alcohol) Comments Unknown Sex and Gender Information Value Date Recorded Sex Assigned at Not on file Legal Sex Female 1:22 PM CDT Gender Identity Not on file Sexual Orientation Not on file Last Filed Vital Signs Vital Sign Reading Time Taken Comments Blood Pressure 140/66 06/17/2022 4:26 PM CDT Standin/64 Pulse 67 06/17/2022 4:26 PM CDT Temperature 36.6 C (97.8 F) 04/29/2022 4:30 PM CDT Respiratory Rate 18 04/29/2022 5:00 PM CDT Oxygen Saturation 98% 06/17/2022 4:2 6 PM CDT Inhaled Oxygen Concentration - - Weight 118.8 kg (262 lb) 06/17/2022 4:2 6 PM CDT with boot on Height 170.2 cm (5' 7 ) 06/17/2022 4:26 PM CDT with boot on Body Mass Index 41.04 06/17/2022 4:26 PM CDT Body Mass Index Percentile 99.54% 06/17 4:26 PM CDT Growth Chart: CDC (Girls, 2- 20 Years) Plan of Treatment Health Maintenance Due Date Last Done Comments Hepatitis A Vaccines (2 of 2 - 2-dose series) 01/11/2007 07/13/2006, 01/11/2006 Depression Screening 2017 Chlamydia Screening 2020 Meningococcal B Vaccine (2 of 2 - Bexsero SCDM 2-dose series) 03/01/2024 08/31/2023 COVID-19 Vaccine ( season) 2024 06/25/2022, 10/13/2021, 04/09/2021, Additional history exists DTaP/Tdap/Td Vaccines (8 - Td or Tdap) 06/15/2032 06/15/2022, 03/12/2017, 01/13/2011, Additional history exists HIB Vaccines Completed 07/13/2006, 06/27, 2005, Additional history exists Pneumococcal Vaccines Aged Out 07/13/2006 , 07/13/2006, 01/12/2006, Additional history exists No longer eligible based on patient's age to complete this topic IPV Vaccines Completed 01/13/2011, 12/26, 2005, Additional history exists MMR Vaccines Completed 01/13/2011, 07/13/2006 Varicella Vaccines Completed 01/13/2011, 07/13/2006 HPV Vaccines Completed 05/09/2020, 05/08/2019 Meningococcal Vaccine (ACWY) Completed 06/15/2022, 03/12/2017 Hepatitis B Vaccines Completed 08/31/2023, 06/21/2023, 04/21/2023, Additional history exists Influenza Vaccine Completed 08/31/2024, , 06/15/2022, Additional history exists Rotavirus Vaccines Aged Out No longer eligible based on patient's age to complete this topic Goals Goal Patient Goal Type Associated Problems Recent Progress Patient-Stated? Author [facility] PT General Knee Physical Therapy Sara Waldron, PT DPT Note: GOAL LENGTH STATUS Independent ADLs without interference from ankle pain. 8 weeks In Progress Restore normal gait without ankle pain. 8 weeks In Progress Restore full functional knee motion equal to non- involved leg for normal ADLs, walking, car transfers, and stair management. 8 weeks In Progress Restore normal stair management without ankle pain. 8 weeks In Progress Independent with final home exercise program at discharge. 8 weeks Not Met Medical Devices Implanted Type Area Meat Inspector Device Identifier Shelf Expiration Date Model / Serial / Lot Anchr Sut Tk Biocomp Sjnt 1 Fw - [id number] Implanted:Qty: 1 on 06/07/2019 by Kellie Castro MD Right: Ankle ARTHREX 02/24/2021 AR-8934BCN F / / [id number] Kit Tghtrp Syndms Rep Xp Ss - [id number] Implanted:Qty: 1 on 06/07/2019 by Kellie Castro MD Right: Ankle ARTHREX 07/27/2023 AR-[id number] / / [id number] Syndesmosis Tightrope Implanted:Qty: 1 on 04/29/2022 by Kellie Castro MD Right: Ankle ARTHREX [id number] 02/24/2027 AR-[id number] / / [id number] Explanted Type Area Meat Inspector Device Identifier Shelf Expiration Date Model / Serial / Lot 12 Hole Straight Plate Implanted:Qty: 1 on 06/07/2019 by Kellie Castro MD Explanted:Qty: 1 on 04/29/2022 by Kellie Castro MD Right: Ankle ARTHREX AR-9943C-12 / / [id number] Scr Herman Joce Lowp Ti 3.5x14mm - [id number] Implanted:Qty: 3 on 06/07/2019 by Kellie Castro MD Explanted:Qty: 3 on 04/29/2022 by Kellie Castro MD Right: Ankle ARTHREX AR-8935L-14 / / Scr Herman Joce Lowp Ti 3.5x16mm - [id number] Implanted:Qty: 3 on 06/07/2019 by Kellie Castro MD Explanted:Qty: 3 on 04/29/2022 by Kellie Castro MD Right: Ankle ARTHREX AR-8935L-16 / / Scr Herman Lowp Ti 3x18mm - [id number] Implanted:Qty: 1 on 06/07/2019 by Kellie Castro MD Explanted:Qty: 1 on 04/29/2022 by Kellie Castro MD Right: Ankle ARTHREX AR-8933-18 / / Scr Herman Nlok Lowp Ti 3.5x18mm - [id number] Implanted:Qty: 1 on 06/07/2019 by Kellie Castro MD Explanted:Qty: 1 on 04/29/2022 by Kellie Castro MD Right: Ankle ARTHREX AR-8935-18 / / Scr Herman Nlok Lowp Ti 3.5x48mm - [id number] Implanted:Qty: 1 on 06/07/2019 by Kellie Castro MD Explanted:Qty: 1 on 04/29/2022 by Kellie Castro MD Right: Ankle ARTHREX AR-8935-48 / / Insurance #[address] [place] [address] [employer] BLUE [employer] [facility] Cross Blue Shield Commercial (POS, PPO, etc) Address: [facility] [id number] [place] [address] [address] [place] [address] [facility] BLUE [facility] Cross Blue Shield Commercial (POS, PPO, etc) Address: [id number] [place] [phone] Care Teams Children'S Tutor Nursery Relationship Specialty Start Date End Date Carlitos Mitchell MD [facility] [place] [address] PCP - General Pediatric Development 06/15/22
--- OUTSIDE RECORDS SUMMARY | 2025-01-14 23:35 | XMS_ITS | Encounter Summary ---
Author Organization [facility] Address [address] [place] [address] Phone Care Team Providers Care Hearing Aid Specialist Name Role Phone Arlyn Crump MD Primary Care Provider Carlitos Mitchell MD Primary Care Provid er Reason for Visit * Reason Comments Medication Refill Encounter Details Date Type Department Care Team (Late st Contact Info) Description 06/02/2020 Refill [facility] - Pediatrics - [place] [facility] [place] [address] Adam Cabrera MD [address] [facility] [place] [address] Medication Refill Social History Tobacco Use Types Packs/Day Years Used Date Smoking Tobacco: Never Smokeless Tobacco: Never Alcohol Use Standard Drinks/Week Comments Not Asked 0 (1 standard drink = 0.6 oz pur e alcohol) PHQ-2 Answer Date Recorded PHQ-2 Score 0 05/25/2019 Comments No Sex and Gender Information Value Date Recorded Sex Assigned at Female 01/25/2024 11:06 AM CDT Legal Sex Female 2:46 AM DEVICE PROCESSING ENGINEER Gender Identity Female 01/25/2024 11:06 AM CDT Sexual Orientation Straight 01/25/2024 11 :06 AM CDT COVID-19 Exposure Response Date Recorded In the last month, have you been in contact with someone who was confirmed or suspected to have Coronavirus / COVID-19? No / Unsure 05/09/2020 7:34 AM CDT documented as of this encounter Miscellaneous Notes * Telephone Encounter - Viri Del Rio RN - 06/02/2020 7:15 PM CDT Last OV: 05/09/20 Last refill: 06/19/19 Next OV: None Scheduled documented in this encounter Plan of Treatment Upcoming Encounters Date Type Department Care Team (Late st Contact Info) Description 03/12/2025 11:00 AM CDT [facility] - [place] [address] [place] [address] Carlitos Mitchell MD [address] [place] [address] 05/21/2025 10:00 AM CDT [facility] - [address] [place] [address] Leigha Burks APRN, SCHEDULING MANAGER [address] [place] [address] Discharge Disposition: Discharged to home or Selfcare 10/01/2025 10:00 AM DEVICE PROCESSING ENGINEER Office Visit [facility] [address] [place] [phone] Adelita Dumont, PAC [address] [place] [address] Discharge Disposition: Discharged to home or Selfcare documented as of this encounter Goals Goal Patient Goal Type Associated Problems Recent Progress Patient-Stated? Author I want my wound to heal so I can begin physical therapy General On track( 019 10:46 AM DEVICE PROCESSING ENGINEER) Yes Noris Qiuroz, RN Note: Goal Reviewed with: patient and parent Readiness to change: Ready to change Department associated with goal: [facility] WOUND CARE - [facility] Steps to achieve goal: 1. I will change my dressings as ordered 2. I will keep my appointments with the wound clinic documented as of this encounter Visit Diagnoses Not on filedocumented in this encounter Additional Health Concerns Infection Onset Date Last Indicated Resolved Time COVID - 19 09/29/2020 09/29/2020 10/19/2020 12:1 8 AM DEVICE PROCESSING ENGINEER COVID - 19 Confirmed 09/29/2020 09/29/2020 021 12:18 AM DEVICE PROCESSING ENGINEER COVID - 19 01/20/2021 01/20/2021 02/09/2021 12:1 6 AM CDT COVID - 19 10/25/2023 10/25/2023 11/04/2023 12:1 6 AM DEVICE PROCESSING ENGINEER Respiratory Rule-Out 10/25/2023 10/25/2023 024 7:29 PM DEVICE PROCESSING ENGINEER Influenza 10/25/2023 10/25/2023 11/01/2023 12:1 6 AM DEVICE PROCESSING ENGINEER Assessment Noted Time PHQ-9 Depression Total Score: 0 05/08/20 10:56 AM CDT documented as of this encounter Care Teams Hearing Aid Specialist Relationship Specialty Start Date End Date Arlyn Crump MD [address] [place] [address] PCP - General Pediatrics 05/09/20 11/28/21 Carlitos Mitchell MD [address] [place] [address] PCP - General Pediatrics 11/29/21 documented as of this encounter
--- OUTSIDE RECORDS SUMMARY | 2025-01-14 23:35 | XMS_ITS | Encounter Summary ---
Author Organization [facility] Address [address] [place] [address] Phone Care Team Providers Care Citrus Picker Name Role Phone Carlitos Mitchell MD Primary Care Provid er Reason for Visit * Reason Comments Medication Refill Encounter Details Date Type Department Care Team (Late st Contact Info) Description 02/25/2022 Refill [facility] - [facility]s - [place] [address] [place] [address] Rosa Maria Turner, CAE ENGINEER, CHIEF LIBRARIAN BRANCH OR DEPARTMENT [address], [place] [phone] Medication Refill Social History Tobacco Use Types Packs/Day Years Used Date Smoking Tobacco: Never Smokeless Tobacco: Never Alcohol Use Standard Drinks/Week Comments Not Asked 0 (1 standard drink = 0.6 oz pur e alcohol) PHQ-2 Answer Date Recorded Total Score - Questions 1-9 7 01/2022 Comments No Sex and Gender Information Value Date Recorded Sex Assigned at Female 01/25/2024 11:06 AM CDT Legal Sex Female 2:46 AM ONLINE MARKETING STRATEGIST Gender Identity Female 01/25/2024 11:06 AM CDT Sexual Orientation Straight 01/25/2024 11 :06 AM CDT COVID-19 Exposure Response Date Recorded In the last 10 days, have yo u been in contact with someone who was confirmed or suspected to have Coronavirus/COVID-19? No / Unsure 02/20/2022 3:47 PM CDT documented as of this encounter Miscellaneous Notes * Telephone Encounter - India Salomon RN - 02/25/2022 12:48 PM CDT Last visit: 01/29/22 Last refill: 12/04/21 Medication failed the protocol, provider to review and approve the medication order if appropriate. Requested Prescriptions Pending Prescriptions Disp Refills amitriptyline (ELAVIL) 25 MG Tablet [Pharmacy Med Name: AMITRIPTYLINE HCL 25 MG TAB] 90 Tablet 0 Sig: Take 1 Tablet by mouth nightly. Not Delegated - Tricyclic Agents Protocol Failed - 02/25/2022 12:31 PM Failed - This refill cannot be delegated Failed - Active on medication list Passed - Visit with relevant provider in past 12 months or upcoming 90 days Recent Visits Date Type Provider Dept 01/29/22 Office Visit Carlitos Mitchell MD [facility] [place] 12/30/21 Office Visit Carlitos Mitchell MD [facility] [place] 09/10/21 Office Visit Bethany Cintron APRN, CHIEF LIBRARIAN BRANCH OR DEPARTMENT [facility] [place] 06/18/21 Office Visit Carlitos Mitchell MD [facility] [place] 05/30/21 Office Visit Carlitos Mitchell MD [facility] [place] Showing recent visits within past 365 days and meeting all other requirements Future Appointments No visits were found meeting these conditions. Showing future appointments within next 90 days and meeting all other requirements documented in this encounter Plan of Treatment Upcoming Encounters Date Type Department Care Team (Late st Contact Info) Description 03/12/2025 11:00 AM CDT Office Visit [facility] - Pediatrics - [place] [address] [place] [address] Carlitso Mitchell MD [address] [place] [address] 05/21/2025 10:00 AM CDT [facility] [place] [facility] - [address] [place] [phone] Fredofanny Leigha N, CAE ENGINEER, CHIEF LIBRARIAN BRANCH OR DEPARTMENT [address] [place] [address] Discharge Disposition: Discharged to home or Selfcare 10/01/2025 10:00 AM ONLINE MARKETING STRATEGIST Office Visit [facility] [address] [place] [address] Adelita Dumont, PAC [address] [place] [address] Discharge Disposition: Discharged to home or Selfcare documented as of this encounter Goals Goal Patient Goal Type Associated Problems Recent Progress Patient-Stated? Author I want my wound to heal so I can begin physical therapy General On track( 019 10:46 AM ONLINE MARKETING STRATEGIST) Yes Noris Quiroz, RN Note: Goal Reviewed with: patient and parent Readiness to change: Ready to change Department associated with goal: [facility] WOUND CARE - [facility] CENTER Steps to achieve goal: 1. I will change my dressings as ordered 2. I will keep my appointments with the wound clinic documented as of this encounter Visit Diagnoses Not on filedocumented in this encounter Additional Health Concerns Infection Onset Date Last Indicated Resolved Time COVID - 19 10/25/2023 10/25/2023 11/04/2023 12:1 6 AM ONLINE MARKETING STRATEGIST Respiratory Rule-Out 10/25/2023 10/25/2023 024 7:29 PM ONLINE MARKETING STRATEGIST Influenza 10/25/2023 10/25/2023 11/01/2023 12:1 6 AM ONLINE MARKETING STRATEGIST Assessment Noted Time PHQ-9 Depression Total Score: 7 12/31/19 22 8:00 AM CDT documented as of this encounter Care Teams Citrus Picker Relationship Specialty Start Date End Date Carlitos Mitchell MD [address] [facility] [place] [address] PCP - General Pediatrics 11/29/21 documented as of this encounter
--- OUTSIDE RECORDS SUMMARY | 2025-01-14 23:35 | XMS_ITS | Encounter Summary ---
Author Organization [facility] Address [address] [place] [address] Phone Care Team Providers Care Real Estate Closing Coordinator Name Role Phone Carlitos Mitchell MD Primary Care Provid er Reason for Visit * Reason Comments Medication Refill Encounter Details Date Type Department Care Team (Late st Contact Info) Description 01/13/2023 Refill [facility] - [place] [address] [place] [address] Rosa Maria Turner, [employer], [employer] [address] [place], [place] [phone] Medication Refill Social History Tobacco Use Types [...] AM CDT Legal Sex Female 2:46 AM SUPERVISOR INSPECTING Gender Identity Female 01/25/2024 11:06 AM CDT Sexual Orientation Straight 01/25/2024 11 :06 AM CDT documented as of this encounter Miscellaneous Notes * Telephone Encounter - Cheryle Ovalles RN - 01/13/2023 8:44 AM CDT Last ov 09-22-22 No future ov Patient to follow up before next refill per notes on script. RemitDATA message sent for OV. documented in this encounter Plan of Treatment Upcoming Encounters Date Type Department Care Team (Late st Contact Info) Description 03/12/2025 11:00 AM CDT Office Visit [facility] - Pediatrics - [place] [address] [place] [address] Carlitos Mitchell MD [address] [place] [address] 05/21/2025 10:00 AM CDT Office Visit [facility] [place] - Neurology - [address] [place] [address] Leigha Burks, [employer], [employer] [address] [place] [address] Discharge Disposition: Discharged to home or Selfcare 10/01/2025 10:00 AM SUPERVISOR INSPECTING Office Visit [facility] [address] [place] [address] Adelita Dumont, PAC [address] [place] [address] Discharge Disposition: Discharged to home or Selfcare documented as of this encounter Goals Goal Patient Goal Type Associated Problems Recent Progress Patient-Stated? Author I want my wound to heal so I can begin physical therapy General On track( 019 10:46 AM SUPERVISOR INSPECTING) Yes Noris Quiroz, RN Note: Goal Reviewed with: patient and parent Readiness to change: Ready to change Department associated with goal: [facility] WOUND CARE - HYPERBARIC CENTER Steps [...] 19 10/25/2023 10/25/2023 11/04/2023 12:1 6 AM SUPERVISOR INSPECTING Respiratory Rule-Out 10/25/2023 10/25/2023 024 7:29 PM SUPERVISOR INSPECTING Influenza 10/25/2023 10/25/2023 11/01/2023 12:1 6 AM SUPERVISOR INSPECTING Assessment Noted Time PHQ-9 Depression Total Score: 6 09/22/20 11:00 AM SUPERVISOR INSPECTING documented as of this encounter Care Teams Real Estate Closing Coordinator Relationship Specialty Start Date End Date Carlitos Mitchell MD [address] [facility] [place] [address] PCP - General Pediatrics 11/29/21 documented as of this encounter
--- OUTSIDE RECORDS SUMMARY | 2025-01-14 23:35 | XMS_ITS | Encounter Summary ---
Author Organization [facility] Address [address] [place] [address] Phone Care Team Providers Care Lapping Machine Operator Name Role Phone Carlitos Mitchell MD Primary Care Provid er Reason for Visit * Reason Comments Medication Refill Encounter Details Date Type Department Care Team (Late st Contact Info) Description 06/28/2022 [facility]ill [facility] - [place] [address] [place] [address] Rosa Maria Turner, ZOO CARETAKER, MANAGER LABOR RELATIONS [address] [place], [place] [id number] Medication Refill Social History Tobacco Use Types [...] AM CDT Legal Sex Female 2:46 AM OPTOMETRIC ASSISTANT Gender Identity Female 01/25/2024 11:06 AM CDT Sexual Orientation Straight 01/25/2024 11 :06 AM CDT COVID-19 Exposure Response Date Recorded In the last 10 days, have yo u been in contact with someone who was confirmed or suspected to have Coronavirus/COVID-19? No / Unsure 06/15/2022 7:43 AM CDT documented as of this encounter Miscellaneous Notes * Telephone Encounter - Arlyn Spencer RN - 06/29/2022 1:49 PM CDT Medication failed the protocol, provider to review and approve the medication order if appropriate. Requested Prescriptions Pending Prescriptions Disp Refills escitalopram (LEXAPRO) 20 MG Tablet [Pharmacy Med Name: ESCITALOPRAM 20 MG TABLET] 30 Tablet 0 Sig: TAKE 1 TABLET BY MOUTH EVERY DAY SSRI (6 Month Refill Only) Protocol Failed - 06/28/2022 8:29 PM Failed - Not delegated, patient under 18 years of age Failed - Patient has established therapy with SSRI for at least 6 months Passed - No test in the past 12 months or most recent test was negative Passed - No active on record Passed - Visit with relevant provider in past 6 months or upcoming 90 days Recent Visits Date Type Provider Dept 06/15/22 Office Visit Carlitos Mitchell MD [facility] [place] 05/11/22 Office Visit Rosa Maria Turner APRN, MANAGER LABOR RELATIONS [facility] [place] 04/20/22 Office Visit Rosa Maria Turner APRN, MANAGER LABOR RELATIONS [facility] [place] 01/29/22 Office Visit Carlitos Mitchell MD [facility] [place] 12/30/21 Office Visit Carlitos Mitchell MD [facility] [place] Showing recent visits within past 182 days and meeting all other requirements Future Appointments Date Type Provider Dept 08/19/22 Appointment Carlitos Mitchell MD [facility] [place] Showing future appointments within next 90 days and meeting all other requirements Passed - Has an encounter in the past 6 months with a depression, anxiety, adjustment disorder, OCD, or PTSD visit diagnosis documented in this encounter Plan of Treatment Upcoming Encounters Date Type Department Care Team (Late st Contact Info) Description 03/12/2025 11:00 AM CDT Office Visit [facility] - Pediatrics [place] [address] [place] [address] Carlitos Mitchell MD [address] [place] [address] 05/21/2025 10:00 AM CDT Office [facility] [place] - Neurology - [address] [place] [address] Leigha Burks, ZOO CARETAKER, MANAGER LABOR RELATIONS [address] [place] [address] Discharge Disposition: Discharged to home or Selfcare 10/01/2025 10:00 AM OPTOMETRIC ASSISTANT Office Visit [facility] [address] [place] [address] Adelita Dumont, PAC [address] [place], [place] [address] Discharge Disposition: Discharged to home or Selfcare documented as of this encounter Goals Goal Patient Goal Type Associated Problems Recent Progress Patient-Stated? Author I want my wound to heal so I can begin physical therapy General On track( 019 10:46 AM OPTOMETRIC ASSISTANT) Yes Noris Quiroz, RN Note: Goal Reviewed with: patient and parent Readiness to change: Ready to change Department associated with goal: [facility] Steps [...] 19 10/25/2023 10/25/2023 11/04/2023 12:1 6 AM OPTOMETRIC ASSISTANT Respiratory Rule-Out 10/25/2023 10/25/2023 024 7:29 PM OPTOMETRIC ASSISTANT Influenza 10/25/2023 10/25/2023 11/01/2023 12:1 6 AM OPTOMETRIC ASSISTANT Assessment Noted Time PHQ-9 Depression Total Score: 6 05/11/20 22 4:00 PM CDT documented as of this encounter Care Teams Lapping Machine Operator Relationship Specialty Start Date End Date Carlitos Mitchell MD [address] [place] [address] PCP - General Pediatrics 11/29/21 documented as of this encounter
--- OUTSIDE RECORDS SUMMARY | 2025-01-14 23:35 | XMS_ITS | Encounter Summary ---
Author Organization [facility] Address [address] [place] [address] Phone Care Team Providers Care Aircraft Mechanic Name Role Phone Carlitos Mitchell MD Primary Care Provid er Reason for Visit * Reason Comments Medication Refill Encounter Details Date Type Department Care Team (Late st Contact Info) Description 12/15/2022 Refill [facility] - [place] [address] [place] [address] Carlitos Mitchell MD [address] [place], [place] [phone] Medication Refill Social History Tobacco Use Types [...] AM CDT Legal Sex Female 2:46 AM AUTO ROLLER Gender Identity Female 01/25/2024 11:06 AM CDT Sexual Orientation Straight 01/25/2024 11 :06 AM CDT COVID-19 Exposure Response Date Recorded In the last 10 days, have yo u been in contact with someone who was confirmed or suspected to have Coronavirus/COVID-19? No / Unsure 11/24/2022 6:47 AM AUTO ROLLER documented as of this encounter Miscellaneous Notes * Telephone Encounter - Sophie Rosario RN - 12/16/2022 11:09 AM CDT Requested Prescriptions Pending Prescriptions Disp Refills escitalopram (LEXAPRO) 20 MG Tablet [Pharmacy Med Name: ESCITALOPRAM 20 MG TABLET] 90 Tablet 1 Sig: TAKE 1 TABLET BY MOUTH EVERY DAY SSRI (6 Month Refill Only) Protocol Failed - 12/15/2022 8:19 PM Failed - Not delegated, patient under 18 years of age Passed - No test in the past 12 months or most recent test was negative Passed - No active on record Passed - Visit with relevant provider in past 6 months or upcoming 90 days Recent Visits Date Type Provider Dept 09/22/22 Office Visit Carlitos Mitchell MD [facility] [place] 08/19/22 Office Visit Carlitos Mitchell MD [facility] [place] Showing recent visits within past 182 days [...] Description 03/12/2025 11:00 AM CDT Office Visit [facility] - [place] [address] Carlitos Mitchell MD [address] [place], [place] [address] 05/21/2025 10:00 AM CDT Office Visit [facility] Neurological [place] - Neurology - [address] [place] [address] [place] [phone] Leigha Burks, REIMBURSEMENT AUDITOR, PROCESS IMPROVEMENT CONSULTANT [address] [place] [address] Discharge Disposition: Discharged to home or Selfcare 10/01/2025 10:00 AM AUTO ROLLER Office Visit [facility] [address] [place] [phone] Adelita Dumont, PAC [address] [place] [address] Discharge Disposition: Discharged to home or Selfcare documented as of this encounter Goals Goal Patient Goal Type Associated Problems Recent Progress Patient-Stated? Author I want my wound to heal so I can begin physical therapy General On track( 019 10:46 AM AUTO ROLLER) Yes Noris Quiroz, RN Note: Goal Reviewed with: patient and parent Readiness to change: Ready to change Department associated with goal: [facility] Steps [...] 19 10/25/2023 10/25/2023 11/04/2023 12:1 6 AM AUTO ROLLER Respiratory Rule-Out 10/25/2023 10/25/2023 024 7:29 PM AUTO ROLLER Influenza 10/25/2023 10/25/2023 11/01/2023 12:1 6 AM AUTO ROLLER Assessment Noted Time PHQ-9 Depression Total Score: 6 09/22/20 22 11:00 AM AUTO ROLLER documented as of this encounter Care Teams Aircraft Mechanic Relationship Specialty Start Date End Date Carlitos Mitchell MD [address] [place] [address] [place] [address] PCP - General Pediatrics 11/29/21 documented as of this encounter
--- OUTSIDE RECORDS SUMMARY | 2025-01-14 23:35 | XMS_ITS | Encounter Summary ---
Author Organization [facility] Address [address] [place] [address] Phone Care Team Providers Care Ophthalmic Tech Name Role Phone Carlitso Mitchell MD Primary Care Provid er Reason for Visit * Reason Comments Medication Refill Encounter Details Date Type Department Care Team (Late st Contact Info) Description 12/04/2021 Refill [facility] - [place] [address] [place] [address] Arlyn Crump MD [address] [place], [place] [phone] Medication Refill Social History Tobacco Use Types Packs/Day Years Used Date Smoking Tobacco: Never Smokeless Tobacco: Never Alcohol Use Standard Drinks/Week Comments Not Asked 0 (1 standard drink = 0.6 oz pur e alcohol) PHQ-2 Answer Date Recorded Total Score - Questions 1-9 3 08/27 Comments No Sex and Gender Information Value Date Recorded Sex Assigned at Female 01/25/2024 11:06 AM CDT Legal Sex Female 2:46 AM RN RENAL Gender Identity Female 01/25/2024 11:06 AM CDT Sexual Orientation Straight 01/25/2024 11 :06 AM CDT documented as of this encounter Miscellaneous Notes * Telephone Encounter - Thu Gonsalves RN - 12/04/2021 8:33 AM RN RENAL 09/10/2021 Bethany Cintron APRN, CPR INSTRUCTOR [facility] [place] Pre-op evaluation Medication failed the protocol, routing to provider to review and approve the medication order. RENAL documented in this encounter Plan of Treatment Upcoming Encounters Date Type Department Care Team (Late st Contact Info) Description 03/12/2025 11:00 AM CDT Office Visit [facility] - [place] [address] [place], [place] [phone] Carlitos Mitchell MD [address] [place], [place] [phone] 05/21/2025 10:00 AM CDT Office Visit [facility] [place] - Neurology - [place] [address] [place] [address] Leigha Burks APRN, CPR INSTRUCTOR [address] [place] [address] Discharge Disposition: Discharged to home or Selfcare 10/01/2025 10:00 AM RN RENAL Office Visit [facility] [address] [place] [address] Adelita Dumont, PAC [address] [place] [address] Discharge Disposition: Discharged to home or Selfcare documented as of this encounter Goals Goal Patient Goal Type Associated Problems Recent Progress Patient-Stated? Author I want my wound to heal so I can begin physical therapy General On track( 019 10:46 AM RN RENAL) Yes Noris Quiroz, RN Note: Goal Reviewed with: patient and parent Readiness to change: Ready to change Department associated with goal: [facility] Steps to achieve goal: 1. I will change my dressings as ordered 2. I will keep my appointments with the wound clinic documented as of this encounter Visit Diagnoses Not on filedocumented in this encounter Additional Health Concerns Infection Onset Date Last Indicated Resolved Time COVID - 19 10/25/2023 10/25/2023 11/04/2023 12:1 6 AM RN RENAL Respiratory Rule-Out 10/25/2023 10/25/2023 024 7:29 PM RN RENAL Influenza 10/25/2023 10/25/2023 11/01/2023 12:1 6 AM RN RENAL Assessment Noted Time PHQ-9 Depression Total Score: 3 09/10/20 21 3:00 PM RN RENAL documented as of this encounter Care Teams Ophthalmic Tech Relationship Specialty Start Date End Date Carlitos Mitchell MD [address] [place] [address] PCP - General Pediatrics 11/29/21 documented as of this encounter
[2025-01-14 23:36] VITALS: BP 141/82; PULSE 94; RESP 18; TEMP 36.5; O2SAT 100
--- NOTE | 2025-01-15 00:04 | ED_ITS ---
HPI - Back Pain/Injury General Chief Complaint: Back Pain/Injury Stated Complaint: back pain Time Seen by Provider: 01/14/25 23:54 History of Present Illness HPI Narrative: Patient is a 19-year-old female who presents the emergency department this evening complaining of lower back pain for the past week. Patient states that she did have a fall last week, she slipped off her bed but states that after the fall her back did not immediately start hurting, it started bothering her few da ys later. Patient states that she went to an urgent care and had x-rays done and had a urinalysis and both revealed no acute process. Patient states that she has been having intermittent pain since then and decided to come in for further evaluation. Patient states that she does have a history of polycystic kidney disease and her mother has a history of endometriosis and she is wondering if that could be causing some of her back pain. Denies any recent illness, any fevers or chills. No additional symptoms or concerns at this time. Related Data Allergies Allergy/AdvReac Type Severity Reaction Status Date / Time No Known Allergies Allergy Verified 01/14/25 23:34 Review of Systems Review of Systems: All systems are reviewed and are negative unless stated otherwise in the HPI. Exam Narrative: General: Alert, awake, afebrile, in no acute distress. HEENT: PERRL, no rhinorrhea, no post nasal drip, oropharynx clear. Neck: Trachea midline, no JVD, no lymphadenopathy. Cardiovascular: Regular rate and rhythm, no murmurs, rubs or gallops, no peripheral edema. Respiratory: Clear to auscultation bilaterally, no tachypnea, no wheezing, no rh onchi, no rubs, no respiratory distress. Abdomen: Soft, nontender, nondistended, no rebound, no guarding, no peritoneal signs. Musculoskeletal: No joint swelling or deformity, normal muscle tone. Back: Midline tenderness to palpation over the paraspinal lumbar region, no midline tenderness to palpation over the cervical or thoracic spine, no step- offs or deformities. Skin: No rashes or petechia, no signs of infection. Psychiatric: Alert and oriented, normal behavior and judgment for situation. Neurological: Alert and oriented to person, place, and time. Follows all co mmands. No focal deficits, speech is clear and fluent. Course Vital Signs Vital signs: Vital Signs Temperature 97.7 F 01/14/25 23:36 Pulse Rate 94 01/14/25 23:36 Respiratory Rate 18 01/14/25 23:36 Blood Pressure 141/82 H 01/14/25 23:36 Pulse Oximetry 100 01/14/25 23:36 Oxygen Delivery Room Air 01/14/25 23:36 Temperature 97.7 F 01/14/25 23:36 Pulse Rate 94 01/14/25 23:36 Respiratory Rate 18 01/14/25 23:36 Blood Pressure 141/82 H 01/14/25 23:36 Pulse Oximetry 100 01/14/25 23:36 Oxygen Delivery Room Air 01/14/25 23:36 MDM - Back Pain/Injury MDM Narrative Medical decision making narrative: The patient was evaluated by myself in the emergency department. History is obtained from patient who is an independent historian and physical exam was performed. External medical records were reviewed at this time. Urinalysis was obtained revealing no evidence of urinary tract infection. Imaging studies obtained included CT lumbar spine without IV contrast which was independently interpreted by me revealing no acute findings, which is pending final radiology interpretation. Patient admits to history of PCOS and was concerned that maybe this or endometriosis could be causing her lower back pain. Patient would like to obtain a pelvic ultrasound, however, would not have ultrasound in the emergency department overnight and patient was informed that she will be scheduled for one 1st thing in the morning at 7:00 a.m. but she will need to return back to the hospital at that time for outpatient imaging and patient is agreeable with this plan. Patient was offered a CT abdomen and pelvis with IV contrast for further evaluation of her symptoms, however, I did inform her that an ultrasound is the study of choice for evaluation of endometriosis/PCOS. Patient refused CT scan at this time. Differential diagnosis considerations include compression fractures, UTI, pyelonephritis, musculoskeletal strain. Comorbidities impacting this visit include none. I have evaluated and discussed social determinants of health with the patient that could potentially impact subsequent diagnosis and treatment plans. On repeat assessment of the patient, reevaluation revealed that the patient is doing well and is in no acute distress. Patient symptoms have improved since she arrived to our emergency department. Repeat vital signs were all reviewed and noted to be stable. Differential diagnosis and treatment plan were discussed with the patient at bedside. Patient agrees with discussion and after shared medical decision making agrees with discharge. All questions were answered to the patient's satisfaction. Patient will follow up with her PCP/OBGYN in 3-5 days. Patient was provided with strict return precautions and instructed to return to the emergency department if any new or worsening symptoms develop. The patient was discharged in stable condition. Lab Data Labs: Lab Results 01/15/25 01/15/25 Range/Units 00:09 00:11 Urine Color Yellow (Yellow) Urine Appearance Clear (Clear) Urine pH 6.5 (5.0-9.0) Ur Specific [address] 1.020 (1.001-1.035) Urine Protein Negative (Negative) mg/dL Urine Glucose (UA) Negative (Negative) mg/dL Urine Ketones Negative (Negative) mg/dL Ur Blood (Man) Negative (Negative) Urine Nitrate Negative (Negative) Urine Bilirubin Negative (Negative) Urine Urobilinogen 0.2 (<2.0) mg/dL Leukocyte Esterase Rfl Negative (Negative) TABATHA/UL POC Urine HCG, Qual Negative (Negative) Discharge Plan Discharge Clinical Impression: Strain of lumbar region Patient Disposition: Home Condition: Stable Instructions: Antibiotic Form, Back Pain (ED) Additional Instructions: Please follow-up with your family doctor within the next 3-5 days. Return to the emergency department if any new or worsening symptoms develop. You were scheduled for a pelvic ultrasound to be performed at 7:00 a.m. in the morning, please presented to our hospital main entrance at 6:45 and be directed to our ultrasound department to have this study performed. Patient Language: Singaporean Other Ambulatory Orders: US pelvic complete w TV (Routine) Timeframe: 20250115 Location: Determined by Patient Ordered By: Kingsley Costello Follow-up/Referrals: Christina Blank MD [place] [Provider Group] - 3 Days UNKNOWN,DOCTOR [Non-Staff] - 3 Days Time of Disposition: 01:06
--- OUTSIDE RECORDS SUMMARY | 2025-01-15 00:06 | XMS_ITS | Encounter Summary ---
Author Organization [facility] Address [address] [place] [address] Phone Care Team Providers Care Boatswains Mate Name Role Phone Carlitos Mitchell MD Primary Care Provid er Reason for Visit * Reason Comments Medication Refill Encounter Details Date Type Department Care Team (Late st Contact Info) Description 07/10/2022 [facility]ill [facility] - [place] [address] [place] [address] Carlitos Mitchell MD [address] [place], [place] [phone] Medication Refill Social History Tobacco Use Types [...] AM CDT Legal Sex Female 2:46 AM AGRICULTURAL PRODUCE WASHER Gender Identity Female 01/25/2024 11:06 AM CDT [...] Dept 06/15/22 Office Visit Carlitos Mitchell MD [facility] [place] 05/11/22 Office Visit Rosa Maria Turner APRN, [facility] [place] 04/20/22 Office Visit Rosa Maria Turner APRN, SETTER JUICE PACKAGING MACHINES [facility] [place] 01/29/22 Office Visit Carlitos Mitchell MD [facility] [place] 12/30/21 Office Visit Carlitos Mitchell MD [facility] [place] 09/10/21 Office Visit Bethany Cintron APRN, [facility] [place] Showing recent visits within past 365 days and meeting all other requirements Future Appointments Date Type Provider Dept 08/19/22 Appointment Carlitos Mitchell MD [facility] [place] Showing future appointments within next 90 days and meeting all other requirements documented in this encounter Plan of Treatment Upcoming Encounters Date Type Department Care Team (Late st Contact Info) Description 03/12/2025 11:00 AM CDT Office Visit [facility] Group [place] [address] Carlitos Mitchell MD [address] [place] [address] 05/21/2025 10:00 AM CDT [facility] [place] - Neurology - [place] [address] [place] [phone] Leigha Burks Elvin, BEAM WARPER, SETTER JUICE PACKAGING MACHINES [address] [place] [address] Discharge Disposition: Discharged to home or Selfcare 10/01/2025 10:00 AM AGRICULTURAL PRODUCE WASHER Office Visit [facility] [address] [place] [address] Adelita Dumont, PAC [address] [place] [address] Discharge Disposition: Discharged to home or Selfcare documented as of this encounter Goals Goal Patient Goal Type Associated Problems Recent Progress Patient-Stated? Author I want my wound to heal so I can begin physical therapy General On track( 019 10:46 AM AGRICULTURAL PRODUCE WASHER) Yes Noris Quiroz, RN Note: Goal Reviewed with: patient and parent Readiness to change: Ready to change Department associated with goal: [facility] [...] 19 10/25/2023 10/25/2023 11/04/2023 12:1 6 AM AGRICULTURAL PRODUCE WASHER Respiratory Rule-Out 10/25/2023 10/25/2023 024 7:29 PM AGRICULTURAL PRODUCE WASHER Influenza 10/25/2023 10/25/2023 11/01/2023 12:1 6 AM AGRICULTURAL PRODUCE WASHER Assessment Noted Time PHQ-9 Depression Total Score: 6 05/11/20 22 4:00 PM CDT documented as of this encounter Care Teams Boatswains Mate Relationship Specialty Start Date End Date Carlitos Mitchell MD [address] [place] [address] PCP - General Pediatrics 11/29/21 documented as of this encounter
--- OUTSIDE RECORDS SUMMARY | 2025-01-15 00:06 | XMS_ITS | Clinical Summary ---
Author Organization [facility] Address [address] [place] [address] Phone Care Team Providers Care Substation Mechanic Name Role Phone Carlitos Mitchell MD [...] Not Met Medical Devices Implanted Type Area Cash Register Balancer Device Identifier Shelf Expiration Date Model / Serial / Lot Anchr Sut Tk Biocomp Sjnt 1 Fw - [id number] Implanted:Qty: 1 on 06/07/2019 by Kellie Castro MD Right: Ankle ARTHREX 02/24/2021 AR-8934BCN F / / [id number] Kit Tghtrp Syndms Rep Xp Ss - [id number] Implanted:Qty: 1 on 06/07/2019 by Kellie Castro MD Right: Ankle ARTHREX 07/27/2023 AR-8925SS / / [id number] Syndesmosis Tightrope Implanted:Qty: 1 on 04/29/2022 by Kellie Castro MD Right: Ankle ARTHREX [id number] 02/24/2027 AR-[id number] / / [id number] Explanted Type Area Cash Register Balancer Device Identifier Shelf Expiration Date Model / Serial / Lot 12 Hole Straight Plate Implanted:Qty: 1 on 06/07/2019 by Kellie Castro MD Explanted:Qty: 1 on 04/29/2022 by Kellie Castro MD Right: Ankle ARTHREX AR-9943C-12 / / [id number] Scr Herman Joce Lowp Ti 3.5x14mm - [id number] Implanted:Qty: 3 on 06/07/2019 by Kellie Castro MD Explanted:Qty: 3 on 04/29/2022 by Kellie Castro MD Right: Ankle ARTHREX AR-8935L-14 / / Scr Herman Joce Lowp Ti 3.5x16mm - [id number] Implanted:Qty: 3 on 06/07/2019 by Kellie Castro MD Explanted:Qty: 3 on 04/29/2022 by Kellie Castro MD Right: Ankle ARTHREX AR-8935L-16 / / Scr Herman Lowp Ti 3x18mm - [id number] Implanted:Qty: 1 on 06/07/2019 by Kellie Castro MD Explanted:Qty: 1 on 04/29/2022 by Kellie Castro MD Right: Ankle ARTHREX AR-8933-18 / / Scr Herman Nlok Lowp Ti 3.5x18mm - [id number] Implanted:Qty: 1 on 06/07/2019 by Kellie Castro MD Explanted:Qty: 1 on 04/29/2022 by Kellie Castro MD Right: Ankle ARTHREX AR-8935-18 / / Scr Herman Nlok Lowp Ti 3.5x48mm - [id number] Implanted:Qty: 1 on 06/07/2019 by Kellie Castro MD Explanted:Qty: 1 on 04/29/2022 by Kellie Castro MD Right: Ankle ARTHREX AR-8935-48 / / Insurance #[address] [place] [address] BLUE CROSS BLUE SHIELD [facility] Cross Blue Shield Commercial (POS, PPO, etc) Address: [facility] [id number] [place] [address] [address] [place] [address] [facility] BLUE [facility] Cross Blue Shield Commercial (POS, PPO, etc) Address: [id number] [place] [phone] Care Teams Substation Mechanic Relationship Specialty Start Date End Date Carlitos Mitchell MD [facility] [place] [address] PCP - General Pediatric Development 06/15/22
--- OUTSIDE RECORDS SUMMARY | 2025-01-15 00:06 | XMS_ITS | Encounter Summary ---
Author Organization [facility] Address [address] [place] [address] Phone Care Team Providers Care Gospel Worker Name Role Phone Carlitos Mitchell MD Primary Care Provid er Reason for Visit * Reason Comments Medication Refill Encounter Details Date Type Department Care Team (Late st Contact Info) Description 06/28/2022 [facility]ill [facility]s - [place] [address] [place] [address] Rosa Maria Turner, INDUCTION HEAT TREATER, CIRCLE SAW OPERATOR [address] [place], [place] [id number] Medication Refill Social History Tobacco Use Types [...] AM CDT Legal Sex Female 2:46 AM VIDEO PRODUCTION SPECIALIST Gender Identity Female 01/25/2024 11:06 AM CDT [...] Dept 06/15/22 Office Visit Carlitos Mitchell MD [facility] [place] 05/11/22 Office Visit Rosa Maria Turner APRN, CIRCLE SAW OPERATOR [facility] [place] 04/20/22 Office Visit Rosa Maria Turner APRN, CIRCLE SAW OPERATOR [facility] [place] 01/29/22 Office Visit Carlitos Mitchell MD [facility] [place] 12/30/21 Office Visit Carlitos Mitchell MD [facility] [place] Showing recent visits within past 182 days and meeting all other requirements Future Appointments Date Type Provider Dept 08/19/22 Appointment Carlitos Mitchell MD [facility] [place] Showing future appointments within next 90 days and meeting all other requirements Passed - Has an encounter in the past 6 months with a depression, anxiety, adjustment disorder, OCD, or PTSD visit diagnosis documented in this encounter Plan of Treatment Upcoming Encounters Date Type Department Care Team (Late st Contact Info) Description 03/12/2025 11:00 AM CDT Office Visit [facility] - Pediatrics [place] [address] [place] [address] Carlitos Mitchell MD [address] [place] [address] 05/21/2025 10:00 AM CDT [facility] [place] - Neurology - [address] [place] [address] Leigha Burks, INDUCTION HEAT TREATER, CIRCLE SAW OPERATOR [address] [place] [address] Discharge Disposition: Discharged to home or Selfcare 10/01/2025 10:00 AM VIDEO PRODUCTION SPECIALIST Office Visit [facility] [address] [place] [address] Adelita Dumont, PAC [address] [place], [place] [address] Discharge Disposition: Discharged to home or Selfcare documented as of this encounter Goals Goal Patient Goal Type Associated Problems Recent Progress Patient-Stated? Author I want my wound to heal so I can begin physical therapy General On track( 019 10:46 AM VIDEO PRODUCTION SPECIALIST) Yes Noris Quiroz, RN Note: Goal Reviewed with: patient and parent Readiness to change: Ready to change Department associated with goal: [facility] Steps to [...] 19 10/25/2023 10/25/2023 11/04/2023 12:1 6 AM VIDEO PRODUCTION SPECIALIST Respiratory Rule-Out 10/25/2023 10/25/2023 024 7:29 PM VIDEO PRODUCTION SPECIALIST Influenza 10/25/2023 10/25/2023 11/01/2023 12:1 6 AM VIDEO PRODUCTION SPECIALIST Assessment Noted Time PHQ-9 Depression Total Score: 6 05/11/20 22 4:00 PM CDT documented as of this encounter Care Teams Gospel Worker Relationship Specialty Start Date End Date Carlitos Mitchell MD [address] [place] [address] PCP - General Pediatrics 11/29/21 documented as of this encounter
--- OUTSIDE RECORDS SUMMARY | 2025-01-15 00:06 | XMS_ITS | Encounter Summary ---
Author Organization [facility] Address [address] [place] [address] Phone Care Team Providers Care Analog Device Designer Name Role Phone Carlitos Mitchell MD Primary Care Provid er Reason for Visit * Reason Comments Medication Refill Encounter Details Date Type Department Care Team (Late st Contact Info) Description 02/25/2022 [facility]ill [facility] - [place] [address] [place] [address] Rosa Maria Turner, FISHING REEL ASSEMBLER, SWITCHBOARD WIRER [address] [place], [place] [phone] Medication Refill Social History Tobacco Use Types [...] AM CDT Legal Sex Female 2:46 AM DIPPER AND DRIER Gender Identity Female 01/25/2024 11:06 AM CDT [...] Dept 01/29/22 Office Visit Carlitos Mitchell MD [facility] [place] 12/30/21 Office Visit Carlitos Mitchell MD [facility] [place] 09/10/21 Office Visit Bethany Cintron APRN, SWITCHBOARD WIRER [facility] [place] 06/18/21 Office Visit Carlitos Mitchell MD [facility] [place] 05/30/21 Office Visit Carlitos Mitchell MD [facility] [place] Showing recent visits within past 365 days and meeting all other requirements Future Appointments No visits were found meeting these conditions. Showing future appointments within next 90 days and meeting all other requirements documented in this encounter Plan of Treatment Upcoming Encounters Date Type Department Care Team (Late st Contact Info) Description 03/12/2025 11:00 AM CDT Office Visit [facility] Medical Group - Pediatrics - [place] [address] [place] [address] Carlitos Mitchell MD [address] [place] [address] 05/21/2025 10:00 AM CDT [facility] [place] - Neurology - [place] [address] [place] [phone] Fredofanny Leigha N, FISHING REEL ASSEMBLER, SWITCHBOARD WIRER [address] [place] [address] Discharge Disposition: Discharged to home or Selfcare 10/01/2025 10:00 AM DIPPER AND DRIER Office Visit [facility] [address] [place] [address] Adelita Dumont, PAC [address] [place] [address] Discharge Disposition: Discharged to home or Selfcare documented as of this encounter Goals Goal Patient Goal Type Associated Problems Recent Progress Patient-Stated? Author I want my wound to heal so I can begin physical therapy General On track( 019 10:46 AM DIPPER AND DRIER) Yes Noris Quiroz, RN Note: Goal Reviewed with: patient and parent Readiness to change: Ready to change Department associated with goal: [facility] - [facility] Steps to achieve goal: 1. I will change my dressings as ordered 2. I will keep my appointments with the wound clinic documented as of this encounter Visit Diagnoses Not on filedocumented in this encounter Additional Health Concerns Infection Onset Date Last Indicated Resolved Time COVID - 19 10/25/2023 10/25/2023 11/04/2023 12:1 6 AM DIPPER AND DRIER Respiratory Rule-Out 10/25/2023 10/25/2023 024 7:29 PM DIPPER AND DRIER Influenza 10/25/2023 10/25/2023 11/01/2023 12:1 6 AM DIPPER AND DRIER Assessment Noted Time PHQ-9 Depression Total Score: 7 12/31/19 22 8:00 AM CDT documented as of this encounter Care Teams Analog Device Designer Relationship Specialty Start Date End Date Carlitos Mitchell MD [address] [place] [address] PCP - General Pediatrics 11/29/21 documented as of this encounter
--- OUTSIDE RECORDS SUMMARY | 2025-01-15 00:06 | XMS_ITS | Encounter Summary ---
Author Organization [facility] Address [address] [place] [address] Phone Care Team Providers Care Electrotype Molder Name Role Phone Carlitos Mitchell MD Primary Care Provid er Reason for Visit * Reason Comments Medication Refill Encounter Details Date Type Department Care Team (Late st Contact Info) Description 12/04/2021 [facility]ill [facility] - [place] [address] [place] [address] Arlyn Crump MD [address] [place], [place] [phone] Medication Refill Social History Tobacco Use Types [...] AM CDT Legal Sex Female 2:46 AM ROUTE CLERK Gender Identity Female 01/25/2024 11:06 AM CDT Sexual Orientation Straight 01/25/2024 11 :06 AM CDT documented as of this encounter Miscellaneous Notes * Telephone Encounter - Thu Gonsalves RN - 12/04/2021 8:33 AM ROUTE CLERK 09/10/2021 Bethany Cintron APRN, BOILER OPERATORS SUPERVISOR [facility] Pediatrics [facility] Pre-op evaluation Medication failed the protocol, routing to provider to review and approve the medication order. E CLERK documented in this encounter Plan of Treatment Upcoming Encounters Date Type Department Care Team (Late st Contact Info) Description 03/12/2025 11:00 AM CDT Office Visit [facility] Pediatrics - [place] [address] [place], [place] [phone] Carlitos Mitchell MD [address] [place], [place] [address] 05/21/2025 10:00 AM CDT Office Visit [facility] Neurological [place] - Neurology - [place] [place] [address] Leigha Burks APRN, BOILER OPERATORS SUPERVISOR [address] [place] [address] Discharge Disposition: Discharged to home or Selfcare 10/01/2025 10:00 AM ROUTE CLERK Office Visit [facility] Sleep [address] [place] [address] Adelita Dumont, PAC [address] [place] [address] Discharge Disposition: Discharged to home or Selfcare documented as of this encounter Goals Goal Patient Goal Type Associated Problems Recent Progress Patient-Stated? Author I want my wound to heal so I can begin physical therapy General On track( 019 10:46 AM ROUTE CLERK) Yes Noris Quiroz, RN Note: Goal Reviewed with: patient and parent Readiness to change: Ready to change Department associated with goal: [facility] - [facility] Steps to achieve goal: 1. I will change my dressings as ordered 2. I will keep my appointments with the wound clinic documented as of this encounter Visit Diagnoses Not on filedocumented in this encounter Additional Health Concerns Infection Onset Date Last Indicated Resolved Time COVID - 19 10/25/2023 10/25/2023 11/04/2023 12:1 6 AM ROUTE CLERK Respiratory Rule-Out 10/25/2023 10/25/2023 024 7:29 PM ROUTE CLERK Influenza 10/25/2023 10/25/2023 11/01/2023 12:1 6 AM ROUTE CLERK Assessment Noted Time PHQ-9 Depression Total Score: 3 09/10/20 21 3:00 PM ROUTE CLERK documented as of this encounter Care Teams Electrotype Molder Relationship Specialty Start Date End Date Carlitos Mitchell MD [address] [address] PCP - General Pediatrics 11/29/21 documented as of this encounter
--- OUTSIDE RECORDS SUMMARY | 2025-01-15 00:06 | XMS_ITS | Clinical Summary ---
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 Overview (08/30/2023): Found incidentally on [place] [facility] xray for trauma, mild multiple level [...] Care Team Description 11/02/2024 Refill [facility] [place] - Neurology - [facility] [address] [place] [phone] Leigha Burks, METER ENGINEER, PACKAGING TECHNICIAN Medication Refill 10/18/2024 Telephone [facility] - [facility]s - [place] [address] [place] [address] Carlitos Mitchell MD Results from Last 3 Months Immunizations [...] AM CDT Legal Sex Female 2:46 AM CYBER ENGINEER Gender Identity Female 01/25/2024 11:06 AM CDT Sexual Orientation Straight 01/25/2024 11 :06 AM CDT Last Filed Vital Signs Vital Sign Reading Time Taken Comments Blood Pressure 118/76 10/03/2024 10:12 AM CYBER ENGINEER Pulse 78 10/03/2024 10:12 AM CYBER ENGINEER Temperature 36.6 C (97.9 F) 08/23/2024 3:40 PM CYBER ENGINEER Respiratory Rate 18 08/23/2024 3:40 PM CYBER ENGINEER Oxygen Saturation 97% 09/11/2024 11:14 AM CYBER ENGINEER Inhaled Oxygen Concentration - - Weight 120.7 kg (266 lb) 10/03/2024 10:12 AM CYBER ENGINEER Height 168.9 cm (5' 6.5 ) 10/03/2024 10:12 AM CS T Head Circumference 47 cm 07/05/2007 9:37 AM CDT Head Circumference Percentile 36.66% 07/05/2007 9:37 AM CDT Growth Chart: CDC (Girls, 0- 36 Months) Body Mass Index 42.29 10/03/2024 10:12 AM CYBER ENGINEER Plan of Treatment Upcoming Encounters Date Type Department Care Team (Late st Contact Info) Description 03/12/2025 11:00 AM CDT [facility] - [place] [address] [place] [address] Carlitos Mitchell MD [address] [place] [address] 05/21/2025 10:00 AM CDT Office Visit [facility]rological [place] - Neurology - [place] [address] [place] [phone] Leigha Burks, TRISTA, PACKAGING TECHNICIAN [address] [place] [address] Discharge Disposition: Discharged to home or Selfcare 10/01/2025 10:00 AM CYBER ENGINEER Office Visit [facility] [address] [place] [phone] DumontCosmey Dinorah, PAC [address] [place], [place] [phone] Discharge Disposition: Discharged to home or Selfcare [...] therapy General On track( 019 10:46 AM CYBER ENGINEER) Yes Noris Quiroz, RN Note: Goal Reviewed with: patient and parent Readiness to change: Ready to change Department associated with goal: [facility] Steps to achieve goal: 1. I will change my dressings as ordered 2. I will keep my appointments with the wound clinic Procedures Procedure Name Priority Date/Time Associated Diagnosis Comments US - HEAD/NECK 10/18/2024 12:00 AM CYBER ENGINEER from Last 3 Months Results * US - HEAD/NECK (10/18/2024 12:00 AM CYBER ENGINEER) 10/18/2024 us Provider Scan IMG US ORDERABLES Final Result SCAN from Last 3 Months Insurance [facility] Care Teams Machine Ceramic Coater Relationship Specialty Start Date End Date Carlitos Mitchell MD [facility] [place] [address] PCP - General Pediatrics 11/29/21
--- OUTSIDE RECORDS SUMMARY | 2025-01-15 00:06 | XMS_ITS | Encounter Summary ---
Author Organization [facility] Address [address] [place] [address] Phone Care Team Providers Care Air Transport Professionals Name Role Phone Arlyn Crump MD Primary Care Provider Carlitos Mitchell MD Primary Care Provid er Reason for Visit * Reason Comments Medication Refill Encounter Details Date Type Department Care Team (Late st Contact Info) Description 06/02/[address] [facility] Group - Pediatrics - [place] [address] Adam Cabrera MD [address] [facility] [place] [address] Medication Refill Social History Tobacco [...] AM CDT Legal Sex Female 2:46 AM BOARDING MACHINE OPERATOR Gender Identity Female 01/25/2024 11:06 AM [...] Group - Pediatrics - [place] [address] [place] [address] Carlitos Mitchell MD [address] [place] [address] 05/21/2025 10:00 AM CDT [facility] [place] [facility] Neurology - [place] [address] [place] [address] Leigha Burks APRN, BOTANICAL TECHNICAL OFFICER [address] [place] [address] Discharge Disposition: Discharged to home or Selfcare 10/01/2025 10:00 AM BOARDING MACHINE OPERATOR Office Visit [facility] [address] [place] [phone] Adelita Dumont, PAC [address] [place] [address] Discharge Disposition: Discharged to home or Selfcare documented as of this encounter Goals Goal Patient Goal Type Associated Problems Recent Progress Patient-Stated? Author I want my wound to heal so I can begin physical therapy General On track( 019 10:46 AM BOARDING MACHINE OPERATOR) Yes Noris Quiroz, RN Note: Goal Reviewed with: patient and parent Readiness to change: Ready to change Department associated with goal: [facility] - [facility] Steps to achieve goal: 1. I will change my dressings as ordered 2. I will keep my appointments with the wound clinic documented as of this encounter Visit Diagnoses Not on filedocumented in this encounter Additional Health Concerns Infection Onset Date Last Indicated Resolved Time COVID - 19 09/29/2020 09/29/2020 10/19/2020 12:1 8 AM BOARDING MACHINE OPERATOR COVID - 19 Confirmed 09/29/2020 09/29/2020 021 12:18 AM BOARDING MACHINE OPERATOR COVID - 19 01/20/2021 01/20/2021 02/09/2021 12:1 6 AM CDT COVID - 19 10/25/2023 10/25/2023 11/04/2023 12:1 6 AM BOARDING MACHINE OPERATOR Respiratory Rule-Out 10/25/2023 10/25/2023 024 7:29 PM BOARDING MACHINE OPERATOR Influenza 10/25/2023 10/25/2023 11/01/2023 12:1 6 AM BOARDING MACHINE OPERATOR Assessment Noted Time PHQ-9 Depression Total Score: 0 05/08/20 10:56 AM CDT documented as of this encounter Care Teams Air Transport Professionals Relationship Specialty Start Date End Date Arlyn Crump MD [address] [place] [address] PCP - General Pediatrics 05/09/20 11/28/21 Carlitos Mitchell MD [address] [place] [address] PCP - General Pediatrics 11/29/21 documented as of this encounter
--- OUTSIDE RECORDS SUMMARY | 2025-01-15 00:07 | XMS_ITS | Encounter Summary ---
Author Organization [facility] Address [address] [place] [address] Phone Care Team Providers Care Envelope Addresser Name Role Phone Carlitos Mitchell MD Primary Care Provid er Reason for Visit * Reason Comments Medication Refill Encounter Details Date Type Department Care Team (Late st Contact Info) Description 09/29/2023 Refill [facility] - [place] [address] [place] [address] Eva Sutherland, HUMAN RESOURCES PSYCHOLOGIST, PACE ANALYST [address] [place], [place] [phone] Medication Refill Social History Tobacco Use Types [...] AM CDT Legal Sex Female 2:46 AM CLIENT ACCOUNT ASSISTANT Gender Identity Female 01/25/2024 11:06 AM [...] Dept 06/21/23 Office Visit Carlitos Mitchell MD [facility]s [place] 05/19/23 Office Visit Bethany Cintron APRN, PACE ANALYST [facility] [place] Showing recent visits within past 182 days and meeting all other requirements Future Appointments No visits were found meeting these conditions. Showing future appointments within next 90 days and meeting all other requirements Passed - Has an encounter in the past 6 months with a depression or anxiety visit diagnosis Passed - Patient has established therapy with Bupropion for at least 6 months NT ACCOUNT ASSISTANT documented in this encounter Plan of Treatment Upcoming Encounters Date Type Department Care Team (Late st Contact Info) Description 03/12/2025 11:00 AM CDT Office Visit [facility] Group - Pediatrics - [place] [facility] [address] [place], [place] [address] Carlitos Mitchell MD [address] [place] [address] 05/21/2025 10:00 AM CDT Office Visit [facility] Neurological [place] - Neurology - [place] [address] [place] [address] [place] [address] Leigha Burks APRN, PACE ANALYST [address] [place], [place] [address] Discharge Disposition: Discharged to home or Selfcare 10/01/2025 10:00 AM CLIENT ACCOUNT ASSISTANT Office Visit [facility] [address] [place] [address] Tim Adelita [place], PAC [address] [place] [address] Discharge Disposition: Discharged to home or Selfcare documented as of this encounter Goals Goal Patient Goal Type Associated Problems Recent Progress Patient-Stated? Author I want my wound to heal so I can begin physical therapy General On track( 019 10:46 AM CLIENT ACCOUNT ASSISTANT) Yes Noris Quiroz, RN Note: Goal Reviewed with: patient and parent Readiness to change: Ready to change Department associated with goal: [facility] - [facility] [...] 19 10/25/2023 10/25/2023 11/04/2023 12:1 6 AM CLIENT ACCOUNT ASSISTANT Respiratory Rule-Out 10/25/2023 10/25/2023 024 7:29 PM CLIENT ACCOUNT ASSISTANT Influenza 10/25/2023 10/25/2023 11/01/2023 12:1 6 AM CLIENT ACCOUNT ASSISTANT Assessment Noted Time PHQ-9 Depression Total Score: 6 09/22/20 22 11:00 AM CLIENT ACCOUNT ASSISTANT documented as of this encounter Care Teams Envelope Addresser Relationship Specialty Start Date End Date Carlitos Mitchell MD [address] [place] [address] PCP - General Pediatrics 11/29/21 documented as of this encounter
--- OUTSIDE RECORDS SUMMARY | 2025-01-15 00:07 | XMS_ITS | Encounter Summary ---
Author Organization [facility] Address [address] [place] [address] Phone Care Team Providers Care Railroad Purchasing Agent Name Role Phone Carlitos Mitchell MD Primary Care Provid er Reason for Visit * Reason Comments Medication Refill Encounter Details Date Type Department Care Team (Late st Contact Info) Description 01/13/2023 [facility]ill [facility] - [facility]s - [place] [address] [place] [address] Rosa Maria Turner, BENZENE OPERATOR, DIRECTOR OF EMERGENCY NURSING [address] [place], [place] [id number] Medication Refill Social History Tobacco Use Types [...] AM CDT Legal Sex Female 2:46 AM RAIL TRANSIT OPERATOR Gender Identity Female 01/25/2024 11:06 AM CDT Sexual Orientation Straight 01/25/2024 11 :06 AM CDT documented as of this encounter Miscellaneous Notes * Telephone Encounter - Cheryle Ovalles RN - 01/13/2023 8:44 AM CDT Last ov 09-22-22 No future ov Patient to follow up before next refill per notes on script. [employer] message sent for OV. documented in this encounter Plan of Treatment Upcoming Encounters Date Type Department Care Team (Late st Contact Info) Description 03/12/2025 11:00 AM CDT Office Visit [facility] - Pediatrics - [place] [address] [place] [address] Carlitos Mitchell MD [address] [place] [address] 05/21/2025 10:00 AM CDT Office Visit [facility] [place] - Neurology - [address] [place] [address] Leigha Burks, BENZENE OPERATOR, DIRECTOR OF EMERGENCY NURSING [address] [place] [address] Discharge Disposition: Discharged to home or Selfcare 10/01/2025 10:00 AM RAIL TRANSIT OPERATOR Office Visit [facility] [address] [place] [address] Adelita Dumont, PAC [address] [place] [address] Discharge Disposition: Discharged to home or Selfcare documented as of this encounter Goals Goal Patient Goal Type Associated Problems Recent Progress Patient-Stated? Author I want my wound to heal so I can begin physical therapy General On track( 019 10:46 AM RAIL TRANSIT OPERATOR) Yes Noris Quiroz, RN Note: Goal Reviewed with: patient and parent Readiness to change: Ready to change Department associated with goal: [facility] [...] 19 10/25/2023 10/25/2023 11/04/2023 12:1 6 AM RAIL TRANSIT OPERATOR Respiratory Rule-Out 10/25/2023 10/25/2023 024 7:29 PM RAIL TRANSIT OPERATOR Influenza 10/25/2023 10/25/2023 11/01/2023 12:1 6 AM RAIL TRANSIT OPERATOR Assessment Noted Time PHQ-9 Depression Total Score: 6 09/22/20 11:00 AM RAIL TRANSIT OPERATOR documented as of this encounter Care Teams Railroad Purchasing Agent Relationship Specialty Start Date End Date Carlitos Mitchell MD [address] [place] [address] PCP - General Pediatrics 11/29/21 documented as of this encounter
--- OUTSIDE RECORDS SUMMARY | 2025-01-15 00:07 | XMS_ITS | Encounter Summary ---
Author Organization [facility] Address [address] [place] [address] Phone Care Team Providers Care Maintenance Supervisor Electrical Name Role Phone Carlitos Mitchell MD Primary Care Provid er Reason for Visit * Reason Comments Medication Refill Encounter Details Date Type Department Care Team (Late st Contact Info) Description 03/23/2024 Refill [facility] - [place] [address] [place] [address] Carlitos Mitchell MD [address] [place], [place] [phone] Medication Refill Social History Tobacco Use Types [...] AM CDT Legal Sex Female 2:46 AM TIRE ASSEMBLER Gender Identity Female 01/25/2024 11:06 AM CDT [...] Dept 01/27/24 Office Visit Carlitos Mitchell MD [facility] [place] 06/21/23 Office Visit Carlitos Mitchell MD [facility] [place] 05/19/23 Office Visit Bethany Cintron APRN, CNP [facility] [place] Showing recent visits within past 365 days [...] Description 03/12/2025 11:00 AM CDT Office Visit [facility] - Pediatrics - [place] [address] [place] [address] Carlitos Mitchell MD [address] [place] [address] 05/21/2025 10:00 AM CDT Office Visit [facility]rological [place] - Neurology - [address] [place] [phone] Leigha Burks, SANDWICH BOARD CARRIER, PHYSICAL SECURITY MANAGER [address] [place] [address] Discharge Disposition: Discharged to home or Selfcare 10/01/2025 10:00 AM TIRE ASSEMBLER Office Visit [facility] [address] [place] [address] Adelita Dumont, PAC [address] [place], [place] [address] Discharge Disposition: Discharged to home or Selfcare documented as of this encounter Goals Goal Patient Goal Type Associated Problems Recent Progress Patient-Stated? Author I want my wound to heal so I can begin physical therapy General On track( 019 10:46 AM TIRE ASSEMBLER) Yes Noris Quiroz, RN Note: Goal Reviewed with: patient and parent Readiness to change: Ready to change Department associated with goal: [facility] Steps to achieve goal: 1. I will change my dressings as ordered 2. I will keep my appointments with the wound clinic documented as of this encounter Visit Diagnoses Diagnosis Dyslipidemia Other and unspecified hyperlipidemia documented in this encounter Additional Health Concerns Assessment Noted Time PHQ-9 Depression Total Score: 6 09/22/20 22 11:00 AM TIRE ASSEMBLER documented as of this encounter Care Teams Maintenance Supervisor Electrical Relationship Specialty Start Date End Date Carlitos Mitchell MD [address] [place] [address] PCP - General Pediatrics 11/29/21 documented as of this encounter
--- OUTSIDE RECORDS SUMMARY | 2025-01-15 00:07 | XMS_ITS | Patient Health Record ---
Author Organization [facility] Address [address] [place] [address] Care Team Providers Care Felt Hat Steamer Name Role Phone Kellie Gibson Unavailable [phone] Allergies Allergen (clinical drug ingredient) Drug/Non Drug [...] Problem Status W/U Status Risk Notes Problem [id number] Acute right ankle pain (M25.571) Active confirmed Problem 528308635 Right leg pain (M79.604) Active confirmed Problem Pain in right leg (184954798) Pain in right leg (M79.604) 2 Active confirmed Problem Postoperative care (528852535) Encounter for other specified surgical aftercare (Z48.89) 9 Active confirmed Problem Closed fracture of ankle (08143502) Unspecified fracture of lower end of tibia (right, initial encounter for closed fracture) (S82.301A) 9 Active confirmed Problem Unspecified fracture of shaft of fibula (right, initial encounter for closed fracture) (S82.401A) 9 Active confirmed Problem Closed bimalleolar fracture (77193343) Displaced bimalleolar fracture of right lower leg (initial encounter for closed fracture) (S82.841A) 9 Active confirmed Problem Sprain of deltoid ligament of ankle (33306776) Sprain of deltoid ligament (right, initial encounter) (S93.421A) 9 Active confirmed Plan Of Treatment No Information Insurance Providers Payer Name Payer Address Payer Phone Subscriber Number Group Number Insured Name Patient Relationship to Insured Coverage Start Date Coverage End Date [facility] [address] [place], [place] [id number] 1 [id number] Maureen Smith Child - Insured does not have Financial Responsibility (includes legally adopted child) 9 Medical (General) History Medical History History ICD Code ASTHMA, SKIN DISORDERS, Sleep apnea Surgical History Surgery Date(Month/Year) surgical / procedural No surgical / proc edural history Ankle surgery X3
--- OUTSIDE RECORDS SUMMARY | 2025-01-15 00:07 | XMS_ITS | Encounter Summary ---
Author Organization [facility] Address [address] [place] [address] Phone Care Team Providers Care Information Assurance Specialist Name Role Phone Carlitos Mitchell MD Primary Care Provid er Reason for Visit * Reason Comments Medication Refill Encounter Details Date Type Department Care Team (Late st Contact Info) Description 03/01/2024 Refill [facility] - [place] [address] [place] [address] Carlitos Mitchell MD [address] [place], [place] [phone] Medication Refill Social History Tobacco Use Types [...] AM CDT Legal Sex Female 2:46 AM MOTOR VEHICLE TECHNICIAN Gender Identity Female 01/25/2024 11:06 AM CDT [...] Dept 01/27/24 Office Visit Carlitos Mitchell MD [facility] Pediatrics [place] Showing recent visits within [...] [facility] - [place] [facility] [address] [place], [place] [phone] Carlitos Mitchell MD [facility] [address] [place], [place] [address] 05/21/2025 10:00 AM CDT Office Visit [facility] [place] - Neurology - [address] [place] [address] Leigha Burks, IN STORE MARKETER, INTERNATIONAL TRADE ANALYST [address] [place] [address] Discharge Disposition: Discharged to home or Selfcare 10/01/2025 10:00 AM MOTOR VEHICLE TECHNICIAN Office Visit [facility] [address] [place] [address] Adelita Dumont, PAC [address] [place] [address] Discharge Disposition: Discharged to home or Selfcare documented as of this encounter Goals Goal Patient Goal Type Associated Problems Recent Progress Patient-Stated? Author I want my wound to heal so I can begin physical therapy General On track( 019 10:46 AM MOTOR VEHICLE TECHNICIAN) Yes Noris Quiroz, RN Note: Goal Reviewed with: patient and parent Readiness to change: Ready to change Department associated with goal: [facility] - [facility] Steps to achieve goal: 1. I will change my dressings as ordered 2. I will keep my appointments with the wound clinic documented as of this encounter Visit Diagnoses Diagnosis Prediabetes Other abnormal glucose documented in this encounter Additional Health Concerns Assessment Noted Time PHQ-9 Depression Total Score: 6 09/22/20 22 11:00 AM MOTOR VEHICLE TECHNICIAN documented as of this encounter Care Teams Information Assurance Specialist Relationship Specialty Start Date End Date Carlitos Mitchell MD [address] [place] [address] PCP - General Pediatrics 11/29/21 documented as of this encounter
--- OUTSIDE RECORDS SUMMARY | 2025-01-15 00:07 | XMS_ITS | Encounter Summary ---
Author Organization [facility] Address [address] [place] [address] Phone Care Team Providers Care Bowl Attendant Name Role Phone Carlitos Mitchell MD Primary Care Provid er Reason for Visit * Reason Comments Medication Refill Encounter Details Date Type Department Care Team (Late st Contact Info) Description 02/11/2023 Refill [facility] - [facility]s - [place] [address] [place] [address] Rosa Maria Turner, REMOTE SENSING SURVEYOR, INDEPENDENT FILM MAKER [address] [place], [place] [phone] Medication Refill Social History Tobacco Use Types [...] AM CDT Legal Sex Female 2:46 AM INTERACTIVE MEDIA DIRECTOR Gender Identity Female 01/25/2024 11:06 AM [...] Dept 01/20/23 Office Visit Carlitos Mitchell MD [facility] Pediatrics [place] 09/22/22 Office Visit Carlitos Mitchell MD [facility] Pediatrics [place] 08/19/22 Office Visit Carlitos Mitchell MD [facility] Pediatrics [place] Showing recent visits within past 182 days [...] Description 03/12/2025 11:00 AM CDT Office Visit [facility] - Pediatrics - [place], [place] [address] Carlitos Mitchell MD [facility] [address] [place], [place] [address] 05/21/2025 10:00 AM CDT Office Visit [facility] [place] - Neurology - [address] [place] [address] Leigha Burks APRN, INDEPENDENT FILM MAKER [address] [place] [address] Discharge Disposition: Discharged to home or Selfcare 10/01/2025 10:00 AM INTERACTIVE MEDIA DIRECTOR Office Visit [facility] [address] [place] [address] Adelita Dumont, PAC [address] [place], [place] [address] Discharge Disposition: Discharged to home or Selfcare documented as of this encounter Goals Goal Patient Goal Type Associated Problems Recent Progress Patient-Stated? Author I want my wound to heal so I can begin physical therapy General On track( 019 10:46 AM INTERACTIVE MEDIA DIRECTOR) Yes Noris Quiroz, RN Note: Goal Reviewed with: patient and parent Readiness to change: Ready to change Department associated with goal: [facility] Steps [...] 19 10/25/2023 10/25/2023 11/04/2023 12:1 6 AM INTERACTIVE MEDIA DIRECTOR Respiratory Rule-Out 10/25/2023 10/25/2023 024 7:29 PM INTERACTIVE MEDIA DIRECTOR Influenza 10/25/2023 10/25/2023 11/01/2023 12:1 6 AM INTERACTIVE MEDIA DIRECTOR Assessment Noted Time PHQ-9 Depression Total Score: 6 09/22/20 22 11:00 AM INTERACTIVE MEDIA DIRECTOR documented as of this encounter Care Teams Bowl Attendant Relationship Specialty Start Date End Date Carlitos Mitchell [place] [address] PCP - General Pediatrics 11/29/21 documented as of this encounter
--- OUTSIDE RECORDS SUMMARY | 2025-01-15 00:07 | XMS_ITS | Encounter Summary ---
Author Organization [facility] Address [address] [place] [address] Phone Care Team Providers Care Pencil Inspector Name Role Phone Carlitos Mitchell MD Primary Care Provid er Reason for Visit * Reason Comments Medication Refill Encounter Details Date Type Department Care Team (Late st Contact Info) Description 05/30/2023 Refill [facility] - [facility]s - [place] [address] [place] [address] Eva Sutherland, GENERAL PRODUCTION MANAGER, RN LVN [address] [place], [place] [phone] Medication Refill Social History Tobacco Use Types [...] AM CDT Legal Sex Female 2:46 AM MECHANIST Gender Identity Female 01/25/2024 11:06 AM CDT [...] Dept 05/19/23 Office Visit Bethany Cintron APRN, RN LVN [facility] [place] 01/20/23 Office Visit Carlitos Mitchell MD [facility] Pediatrics [place] 09/22/22 Office Visit Carlitos Mitchell MD [facility] Pediatrics [place] 08/19/22 Office Visit Carlitos Mitchell MD [facility]s [place] 06/15/22 Office Visit Carlitos Mitchell MD [facility] Pediatrics [place] Showing recent visits within past 365 days and meeting all other requirements Future Appointments Date Type Provider Dept 06/21/23 Appointment Carlitos Mitchell MD [facility] Pediatrics [place] Showing future appointments within next 90 days and meeting all other requirements documented in this encounter Plan of Treatment Upcoming Encounters Date Type Department Care Team (Late st Contact Info) Description 03/12/2025 11:00 AM CDT Office Visit [facility] - Pediatrics - [place] [address] [place], [place] [address] Carlitos Mitchell MD [address] [place] [address] 05/21/2025 10:00 AM CDT Office Visit [facility] - Neurology - [address] [place] [address] Leigha Burks, TRISTA, RN LVN [address] [place] [address] Discharge Disposition: Discharged to home or Selfcare 10/01/2025 10:00 AM MECHANIST Office Visit [facility] [address] [place] [address] Adelita Dumont, PAC [address] [place], [place] [address] Discharge Disposition: Discharged to home or Selfcare documented as of this encounter Goals Goal Patient Goal Type Associated Problems Recent Progress Patient-Stated? Author I want my wound to heal so I can begin physical therapy General On track( 019 10:46 AM MECHANIST) Yes Noris Quiroz, RN Note: Goal Reviewed with: patient and parent Readiness to change: Ready to change Department associated with goal: [facility] - [facility] Steps to achieve goal: 1. I will change my dressings as ordered 2. I will keep my appointments with the wound clinic documented as of this encounter Visit Diagnoses Not on filedocumented in this encounter Additional Health Concerns Infection Onset Date Last Indicated Resolved Time COVID - 19 10/25/2023 10/25/2023 11/04/2023 12:1 6 AM MECHANIST Respiratory Rule-Out 10/25/2023 10/25/2023 024 7:29 PM MECHANIST Influenza 10/25/2023 10/25/2023 11/01/2023 12:1 6 AM MECHANIST Assessment Noted Time PHQ-9 Depression Total Score: 6 09/22/20 22 11:00 AM MECHANIST documented as of this encounter Care Teams Pencil Inspector Relationship Specialty Start Date End Date Carlitos Mitchell MD [address] [place] [address] PCP - General Pediatrics 11/29/21 documented as of this encounter
--- OUTSIDE RECORDS SUMMARY | 2025-01-15 00:07 | XMS_ITS | Encounter Summary ---
Author Organization [facility] Address [address] [place] [address] Phone Care Team Providers Care Procurement Professional Logistics Name Role Phone Carlitos Mitchell MD Primary Care Provid er Reason for Visit * Reason Comments Medication Refill Encounter Details Date Type Department Care Team (Late st Contact Info) Description 12/15/2022 Refill [facility] - [place] [address] [place] [address] Carlitos Mitchell MD [address] [place], [place] [phone] Medication Refill Social History Tobacco Use Types [...] AM CDT Legal Sex Female 2:46 AM LAY OUT TECHNICIAN Gender Identity Female 01/25/2024 11:06 AM CDT Sexual Orientation Straight 01/25/2024 11 :06 AM CDT COVID-19 Exposure Response Date Recorded In the last 10 days, have yo u been in contact with someone who was confirmed or suspected to have Coronavirus/COVID-19? No / Unsure 11/24/2022 6:47 AM LAY OUT TECHNICIAN documented as of this encounter Miscellaneous Notes [...] Dept 09/22/22 Office Visit Carlitos Mitchell MD [facility] Pediatrics [place] 08/19/22 Office Visit Carlitos Mitchell MD [facility] Pediatrics [place] Showing recent visits within past 182 days [...] Description 03/12/2025 11:00 AM CDT Office Visit [facility] Group [place] [address] Carlitos Mitchell MD [address] [place], [place] [address] 05/21/2025 10:00 AM CDT Office Visit [facility] [place] - Neurology - [address] [place] [address] Leigha Burks, EDITOR & CO FOUNDER, CONVENTION SERVICES MANAGER [address] [place] [address] Discharge Disposition: Discharged to home or Selfcare 10/01/2025 10:00 AM LAY OUT TECHNICIAN Office Visit [facility] [address] [place] [address] Adelita Dumont, PAC [address] [place] [address] Discharge Disposition: Discharged to home or Selfcare documented as of this encounter Goals Goal Patient Goal Type Associated Problems Recent Progress Patient-Stated? Author I want my wound to heal so I can begin physical therapy General On track( 019 10:46 AM LAY OUT TECHNICIAN) Yes Noris Quiroz, RN Note: Goal Reviewed with: patient and parent Readiness to change: Ready to change Department associated with goal: [facility] Steps [...] 19 10/25/2023 10/25/2023 11/04/2023 12:1 6 AM LAY OUT TECHNICIAN Respiratory Rule-Out 10/25/2023 10/25/2023 024 7:29 PM LAY OUT TECHNICIAN Influenza 10/25/2023 10/25/2023 11/01/2023 12:1 6 AM LAY OUT TECHNICIAN Assessment Noted Time PHQ-9 Depression Total Score: 6 09/22/20 22 11:00 AM LAY OUT TECHNICIAN documented as of this encounter Care Teams Procurement Professional Logistics Relationship Specialty Start Date End Date Carlitos Mitchell MD [address] [place] [address] [place] [address] PCP - General Pediatrics 11/29/21 documented as of this encounter
--- OUTSIDE RECORDS SUMMARY | 2025-01-15 00:07 | XMS_ITS | Encounter Summary ---
Author Organization [facility] Address [address] [place] [address] Phone Care Team Providers Care Violin Restorer Name Role Phone Carlitos Mitchell MD Primary Care Provid er Encounter Details Date Type Department Care Team (Late st Contact Info) Description 04/29/2022 Anesthesia Event [facility] [address] [place] [phone] Provider, [facility] Historical Social History Tobacco Use Types [...] on filedocumented in this encounter Care Teams Violin Restorer Relationship Specialty Start Date End Date Carlitos Mitchell MD [address] [place] [address] PCP - General Pediatric Development 06/15/22 documented as of this encounter
[2025-01-15 00:13] LABS: BEDSIDEPREGUCG Negative (Negative)
[2025-01-15 00:15] LABS: Add Urine Microscopic? NO; Appearance Urine Clear (Clear); Bilirubin Urine Negative (Negative); Blood Urine Negative (Negative); Color Urine Yellow (Yellow); Glucose Urine UA Negative (Negative); Ketones Urine Negative (Negative); Leukocyte Esterase Ur Negative LEU/UL (Negative); Nitrate Urine Negative (Negative); Protein Urine Negative (Negative); Urobilinogen Urine 0.2 mg/dL (<2.0); pH Urine 6.5 (5.0-9.0)
[2025-01-15] MEDS: IBUPROFEN 600 MG TABLET PO (00:32)
[2025-01-15 01:16] VITALS: BP 131/85; PULSE 83; RESP 18; O2SAT 100
== END 2025-01-15 01:16 | disposition home or self-care (01) ==
PROVIDERS: Emergency Provider Emergency Medicine
DX: S39.012A Strain of muscle, fascia and tendon of lower back, initial encounter (principal); E28.2 Polycystic ovarian syndrome; W06.XXXA Fall from bed, initial encounter
CPT/HCPCS: 72131; 81003; 81025; 99284; A9270

== ENCOUNTER 2025-01-15 07:30 | Outpatient (CLI) | payer BC, SELFPAY ==
--- NOTE | ~2025-01-15 | US_ITS ---
US pelvic complete w TV Ordering provider: Kingsley Costello MD History: . E28.2 - Polycystic ovarian syndrome . Comparison: None. Technique: Transabdominal and endovaginal ultrasound of the pelvis (Doppler ultrasound interrogation techniques used as needed for this exam.) FINDINGS: CERVIX: Normal. UTERUS: Measures 5.1x 4x 2.9 cm in length which is within normal limits and is anteverted. No myomet rial masses. ENDOMETRIUM: Normal in thickness measuring 5.5 mm. No endometrial masses, cysts or fluid. CUL DE SAC: No free fluid. RIGHT OVARY: Normal in size measuring 3.7x 2.8x 3 centimeters. Normal echotexture. Doppler vascular f low present. Multiple cystic areas are noted with the largest measures 2.2 x 2.1 x 1.7 cm. LEFT OVARY: Normal in size measuring 3.6x 2.3x 1.6 cm. Normal echotexture. Doppler vascular flow pres ent. Multiple small cystic areas. ADNEXA: Normal. No mass. IMPRESSION: Bilateral ovarian follicles with the largest on the right side measuring 2.2 x 2.1 x 1.7 cm. Polycyst ic ovaries are not excluded. Clinical correlation and follow-up advised. Otherwise, normal pelvic ult rasound. Reviewed, dictated and finalized at location A. IMPRESSION: Bilateral ovarian follicles with the largest on the right side measuring 2.2 x 2.1 x 1.7 cm. Polycystic ovaries are not excluded. Clinical correlation and fol low-up advised. Otherwise, normal pelvic ultrasound.
== END 2025-01-15 07:31 | disposition home or self-care (01) ==
PROVIDERS: Visit Provider Emergency Medicine
DX: E28.2 Polycystic ovarian syndrome (principal)
CPT/HCPCS: 76830; 76856